=== PATIENT | male | born 1965 | race Caucasian/White ===

== ENCOUNTER 2025-02-16 12:23 | Outpatient (AMB) | payer MEDICAID, SELFPAY ==
--- OUTSIDE RECORDS SUMMARY | 2025-02-16 12:58 | XMS_ITS | Encounter Summary ---
Author Organization [employer] Address [address] [place] [address] Care Team Providers Care Dipper Clock And Watch Hands Name Role Phone Tessy Painting MD Primary Care Provider [phone] Encounter Details Date Type Department Care Team (Late st Contact Info) Description 02/13/2025 Telephone [facility] MEDICAL [address] [place] [address] Tessy Painting MD [address] [place] [address] Social History Tobacco Use Types Packs/Day Years Used Date Smoking Tobacco: Every Day Cigarettes Passive Smoke Exposure: Current Alcohol Use Standard Drinks/Week Comments Not Currently 0 (1 standard drink = 0.6 oz pur e alcohol) Alcohol Answer Date Recorded How often do you have a drink containing alcohol ? 0 01/23/2025 How many drinks containing a lcohol do you have on a typical day when you are drinking? 0 01/23/2025 How often do you have six or more drinks on one occasion? 0 01/23/2025 Housing Stability Answer Date Recorded What is your housing situation today? I have richmond vazquez 11/14/[address] you li ve. Do you have problems with any of the following? None of the above 11/14/2024 Food Insecurity Answer Date Recorded Within the past 12 months, y ou worried that your food would run out before you got money to buy more: Never True 11/14/2024 Within the past 12 months,th e food you bought just didn't last and you didn't have enough money to get more: Never True Transportation Answer Date Recorded In the past 12 months, has l ack of transportation kept you from medical appts, meetings, work or from getting things needed for daily living? No 11/14/2024 Intimate Partner Violence Answer Date R ecorded Within the last year, have y ou been afraid of your partner or ex-partner? 2 01/23/2025 Within the last year, have y ou been humiliated or emotionally abused in other ways by your partner or ex-partner? 2 Within the last year, have y ou been kicked, hit, slapped, or otherwise physically hurt by your partner or ex-partner? 2 01/23/2025 Within the last year, have y ou been raped or forced to have any kind of sexual activity by your partner or ex-partner? 2 01/23/2025 Utilities Answer Date Recorded In the past 12 months, has t he electric, gas, oil or water company threatened to shut off services in your home? No 11/14/2024 Depression Answer Date Recorded Patient Health Questionnaire-2 Score 0 11/14/2024 Internet Access Answer Date Recorded Internet Access Q1 Yes 11/14/2024 Internet Access Q2 Not on file 11/14/2024 Sex and Gender Information Value Date Recorded Sex Assigned at Male 06/03/2022 11:37 AM EST Legal Sex Male 5:42 PM EDT Gender Identity Male 06/03/2022 11:37 AM EST Sexual Orientation Straight 09/03/2022 11 :32 AM EDT Occupation Industry Job Start Date Job End Date Not on file Not on file Not on file Not on file documented as of this encounter Miscellaneous Notes * Telephone Encounter - Alexa Caldwell MA - 02/13/2025 10:56 AM EDT [facility] Last fill Date: 01/18/25 [facility] sold Date: 01/18/25 Last OV: 01/23/25 Next OV: 03/13/25 Last UTOX: No Utox CSA Date: 01/04/25 DNF Date: 02/15/25 * Telephone Encounter - MELVIN Santamaria - 02/13/2025 8:43 AM EDT Patient left a VM on [facility] requesting oxyCODONE-acetaminophen (Percocet) 10-325 MG tablet TE to BRODERICK Lomeli to prepare CS Rx for the provider documented in this encounter Plan of Treatment Upcoming Encounters Date Type Department Care Team (Late st Contact Info) Description 03/13/2025 2:40 PM EDT [facility] Visit [facility] MED[facility] [address] [place] [address] Tessy Painting MD [address] [place] [address] documented as of this encounter Visit Diagnoses Not on filedocumented in this encounter Care Teams Dipper Clock And Watch Hands Relationship Specialty Start Date End Date Tessy Painting MD [address] [place] [address] PCP - General Family Medicine 06/08/24 documented as of this encounter
--- OUTSIDE RECORDS SUMMARY | 2025-02-16 12:58 | XMS_ITS | Encounter Summary ---
Author Organization [employer] Address [address] [facility] 7t [place] [address] Care Team Providers Care Machine Silk Screen Printer Name Role Phone Corazon Shelton PA-C Primary Care Provider Unav Tessy Robertson MD Primary Care Provider [phone] Encounter Details Date Type Department Care Team (Latest Contact Info) Description 02/24/2022 Abstract [facility] Dental, Provider, DDS Social History Tobacco Use Types Packs/Day Years Used Date Smoking Tobacco: Never Assessed Sex and Gender Information Value Date Recorded Sex Assigned at Male 06/03/2022 11:37 AM EST Legal Sex Male 5:42 PM EDT Gender Identity Male 06/03/2022 11:37 AM EST Sexual Orientation Straight 09/03/2022 11 :32 AM EDT documented as of this encounter Plan of Treatment Upcoming Encounters Date Type Department Care Team (Late st Contact Info) Description 03/13/2025 2:40 PM EDT Office Visit [facility] MEDICAL [address] [place] [address] Tessy Painting MD [address] [place] [address] documented as of this encounter Visit Diagnoses Not on filedocumented in this encounter Care Teams Machine Silk Screen Printer Relationship Specialty Start Date End Date Corazon Shelton PA-C PCP - General Family Medicine 05/02/22 06/07/24 Tessy Painting MD [address] [place] [address] PCP - General Family Medicine 06/08/24 documented as of this encounter
--- OUTSIDE RECORDS SUMMARY | 2025-02-16 12:58 | XMS_ITS | Encounter Summary ---
Author Organization [employer] Address [address] [facility] 7t [place] [address] Care Team Providers Care Produce Wrapper Name Role Phone Corazon Shelton PA-C Primary Care Provider Tessy Dawson MD Primary Care Provider [phone] Encounter Details Date Type Department Care Team ([facility] Contact Info) Description 06/03/2022 Orders Only [address] [address] Aliza Alvarez LPN Social History Tobacco Use Types Packs/Day Years Used Date Smoking Tobacco: Never Assessed Sex and Gender Information Value Date Recorded Sex Assigned at Male 06/03/2022 11:37 AM EST Legal Sex Male 5:42 PM EDT Gender Identity Male 06/03/2022 11:37 AM EST Sexual Orientation Straight 09/03/2022 11 :32 AM EDT COVID-19 Exposure Response Date Recorded In the last 10 days, have yo u been in contact with someone who was confirmed or suspected to have Coronavirus/COVID-19? No / Unsure 06/03/2022 12:00 PM EST documented as of this encounter Plan of Treatment Upcoming Encounters Date Type Department Care Team ([facility] Contact Info) Description 03/13/2025 2:40 PM EDT Office Visit [address] [address] Tessy Painting MD [address] [place] [address] documented as of this encounter Visit Diagnoses Not on filedocumented in this encounter Care Teams Produce Wrapper Relationship Specialty Start Date End Date Corazon Shelton PA-C PCP - General Family Medicine 05/02/22 06/07/24 Tessy Painting MD [address] [place] [address] PCP - General Family Medicine 06/08/24 documented as of this encounter
--- OUTSIDE RECORDS SUMMARY | 2025-02-16 12:58 | XMS_ITS | Encounter Summary ---
Author Organization [employer] Address [address] [facility] [address]t [place] [address] Care Team Providers Care Sanitation Technician Name Role Phone Tessy Painting MD Primary Care Provider [phone] Reason for Visit * Reason Onset Date Comments Medication Question 08/09/2024 Encounter Details Date Type Department Care Team (Late st Contact Info) Description 08/09/2024 Telephone [facility] MEDICAL [address] [place] [address] Tessy Painting MD [address] [place] [address] Medication Question Social History Tobacco Use Types Packs/Day Years Used Date Smoking Tobacco: Every Day Cigarettes Sex and Gender Information Value Date Recorded Sex Assigned at Male 06/03/2022 11:37 AM EST Legal Sex Male 5:42 PM EDT Gender Identity Male 06/03/2022 11:37 AM EST Sexual Orientation Straight 09/03/2022 11 :32 AM EDT documented as of this encounter Miscellaneous Notes * Telephone Encounter - Aliza Alvarez LPN - 08/15/2024 4:14 PM EST Spoke with Joana at [facility]. Advised it is ok per Dr. Painting for them to fill Tramadol for . * Telephone Encounter - Desirae Hayden - 08/15/2024 3:59 PM EST To nursing * Telephone Encounter - Libby Azevedo - 08/15/2024 3:17 PM EST Pharmacist [place] [phone] called: major interaction with medications he just had a vivial injection done on August 09. So unfortunately I am being blocked from filling this prescription. You do need to give me a call before I can dispense this medicine. I want speak to somebody before we go and do anything else. If you get a free second, please give us a call this again this is truck at [place] [address] pharmacy. I will not be able to dispenses medicine until you callback my phone number here is [phone]. Thank you so much. * Telephone Encounter - Aliza Alvarez LPN - 08/09/2024 9:58 AM EST Spoke with pharmacy. Advised pt. Coming in on the for Vivitrol injection. They will deliver it in a day or two. * Telephone Encounter - Rachael Ellison - 08/09/2024 9:46 AM EST Cici from [facility] [phone] LMOM to set up Vivitrol delivery documented in this encounter Plan of Treatment Upcoming Encounters Date Type Department Care Team (Late st Contact Info) Description 03/13/2025 2:40 PM EDT Office Visit [facility] MEDICAL [address] [place] [address] Tessy Painting MD [address] [place] [address] documented as of this encounter Visit Diagnoses Not on filedocumented in this encounter Care Teams Sanitation Technician Relationship Specialty Start Date End Date Tessy Painting MD [address] [place] [address] PCP - General Family Medicine 06/08/24 documented as of this encounter
--- OUTSIDE RECORDS SUMMARY | 2025-02-16 12:58 | XMS_ITS | Encounter Summary ---
Author Organization [employer] Address [address] [facility] 7t [place] [address] Care Team Providers Care Sales Enablement Lead Name Role Phone Corazon Shelton PA-C Primary Care Provider Tessy Dawson MD Primary Care Provider Reason for Visit * Reason Onset Date Comments Vitral Delivery 11/19/2023 Encounter Details Date Type Department Care Team ([facility] Contact Info) Description 11/19/2023 Telephone [facility] MEDICAL [address] [place] [phone] Corazon Shelton PA-C Vitral Delivery Social History Tobacco Use Types Packs/Day Years Used Date Smoking Tobacco: Every Day Cigarettes Sex and Gender Information Value Date Recorded Sex Assigned at Male 06/03/2022 11:37 AM EST Legal Sex Male 5:42 PM EDT Gender Identity Male 06/03/2022 11:37 AM EST Sexual Orientation Straight 09/03/2022 11 :32 AM EDT documented as of this encounter Miscellaneous Notes * Telephone Encounter - Cheryl Salas RN - 11/19/2023 4:11 PM EDT Pts vivitrol will be delivered to [facility] 12/02/23 * Telephone Encounter - Varsha Magana - 11/19/2023 3:50 PM EDT [facility] LMOM asking to speak to nursing about viral delivery documented in this encounter Plan of Treatment Upcoming Encounters Date Type Department Care Team (Late Contact Info) Description 03/13/2025 2:40 PM EDT Office Visit [facility] MEDICAL [address] [place] [address] Tessy Painting MD [address] [place] [address] documented as of this encounter Visit Diagnoses Not on filedocumented in this encounter Care Teams Sales Enablement Lead Relationship Specialty Start Date End Date Corazon Shelton PA-C PCP - General Family Medicine 05/02/22 06/07/24 Tessy Painting MD [address] [place] [address] PCP - General Family Medicine 06/08/24 documented as of this encounter
--- OUTSIDE RECORDS SUMMARY | 2025-02-16 12:58 | XMS_ITS | Encounter Summary ---
Author Organization [employer] Address [address] [facility] 7t [place] [address] Care Team Providers Care Puller Over Name Role Phone Corazon Shelton PA-C Primary Care Provider Tessy Dawson MD Primary Care Provider Reason for Visit * Reason Onset Date Comments virtual delivery 04/06/2024 Encounter Details Date Type Department Care Team (Late st Contact Info) Description 04/06/[address] [id number] Corazon Shelton PA-C virtual delivery Social History Tobacco Use Types Packs/Day Years [...] Telephone Encounter - Aliza Alvarez LPN - 04/06/2024 2:08 PM EDT Spoke with [facility]. They will deliver Vivitrol next week. * Telephone Encounter - Varsha Magana - 04/06/2024 10:28 AM EDT [facility] virtual delivery with nursing documented in this encounter Plan of Treatment Upcoming Encounters Date Type Department Care Team (Late st Contact Info) Description 03/13/2025 2:40 PM EDT Office Visit [facility] MEDICAL [address] [place] [address] Tessy Painting MD [address] [place] [address] documented as of this encounter Visit Diagnoses Not on filedocumented in this encounter Care Teams Puller Over Relationship Specialty Start Date End Date Corazon Shelton PA-C PCP - General Family Medicine 05/02/22 06/07/24 Tessy Painting MD [address] [place] [address] PCP - General Family Medicine 06/08/24 documented as of this encounter
--- OUTSIDE RECORDS SUMMARY | 2025-02-16 12:58 | XMS_ITS | Encounter Summary ---
Author Organization [employer] Address [address] [facility] 7t [place] [address] Care Team Providers Care Finance Business Partner Name Role Phone Corazon Shelton PA-C Primary Care Provider Unav Tessy Robertson MD Primary Care Provider [phone] Encounter Details Date Type Department Care Team (Latest Contact Info) Description 06/26/2020 Abstract [facility] CON[facility] Dental, Provider, DDS Social [...] Description 03/13/2025 2:40 PM EDT Office Visit [facility] MEDICAL [address] [place] [address] Tessy Painting MD [address] [place] [address] documented as of this encounter Visit Diagnoses Not on filedocumented in this encounter Care Teams Finance Business Partner Relationship Specialty Start Date End Date Corazon Shelton PA-C PCP - General Family Medicine 05/02/22 06/07/24 Tessy Painting MD [address] [place] [address] PCP - General Family Medicine 06/08/24 documented as of this encounter
--- OUTSIDE RECORDS SUMMARY | 2025-02-16 12:58 | XMS_ITS | Encounter Summary ---
Author Organization [employer] Address [address] [facility] 7t [place] [address] Care Team Providers Care Clearance Center Manager Name Role Phone Corazon Shelton PA-C Primary Care Provider Tessy Dawson MD Primary Care Provider [phone] Encounter Details Date Type Department Care Team ([facility] Contact Info) Description 08/07/2022 Orders Only [facility] [address] [place] [address] Corazon Shelton PA-C Social History Tobacco Use Types Packs/Day Years [...] suspected to have Coronavirus/COVID-19? No / Unsure 08/07/2022 11:56 AM EST documented as of this encounter Plan of Treatment Upcoming Encounters Date Type Department Care Team ([facility] Contact Info) Description 03/13/2025 2:40 PM EDT Office Visit [facility] [address] [place] [address] Tessy Painting MD [address] [place] [address] documented as of this encounter Visit Diagnoses Not on filedocumented in this encounter Care Teams Clearance Center Manager Relationship Specialty Start Date End Date Corazon Shelton PA-C PCP - General Family Medicine 05/02/22 06/07/24 Tessy Painting MD [address] [place] [address] PCP - General Family Medicine 06/08/24 documented as of this encounter
--- OUTSIDE RECORDS SUMMARY | 2025-02-16 12:58 | XMS_ITS | Encounter Summary ---
Author Organization [employer] Address [address] [facility] 7t [place] [address] Care Team Providers Care Shoe Repairer Apprentice Name Role Phone Tessy Painting MD Primary Care Provider [phone] Reason for Visit * Reason Onset Date Comments Med Refill 02/13/2025 Encounter Details Date Type Department Care Team (Late st Contact Info) Description 02/13/2025 Refill [facility] MEDICAL [address] [place] [address] Tessy Painting MD [address] [place] [address] Other chronic postprocedural pain; Failed back surgical syndrome Social History Tobacco Use Types Packs/Day Years [...] encounter Miscellaneous Notes * Telephone Encounter - Desirae Hayden - 02/13/2025 10:18 AM EDT [facility] Last fill Date: 01.18.25 [facility] sold Date: 01.18.25 Last OV: 01.23.25 Next OV: 03.13.25 Last UTOX: 01.04.25 CSA Date: 01.04.25 DNF Date: 02.15.25 per [facility], chart shows a script sent on 01.24.25 making it due 02.21.25 * Telephone Encounter - Brittney Milton - 02/13/2025 9:05 AM EDT Patient called for refill of the following medication oxyCODONE-acetaminophen (Percocet) 10-325 MG tablet Please use the following pharmacy [facility] [address] - [place], [place] - [address] [place] [id number] OZZIE #: [id number] I confirmed with patient that this medication was sent in to pharmacy on 01/23 for a 28 day supply and he stated yes but I'm out today of this medication and need a refill I advised patient I will send this refill request message but it appears this would be a early refill since he is out and I told him I'm not sure if it will be approved and the earliest it can take to be sent to the pharmacy. Patient replied OK documented in this encounter Plan of Treatment Upcoming Encounters Date Type Department Care Team (Late st Contact Info) Description 03/13/2025 2:40 PM EDT Office Visit [facility] MEDICAL [address] [place] [address] Tessy Painting MD [address] [place] [address] documented as of this encounter Visit Diagnoses Diagnosis Other chronic postprocedural pain Failed back surgical syndrome documented in this encounter Care Teams Shoe Repairer Apprentice Relationship Specialty Start Date End Date Tessy Painting MD [address] [place] [address] PCP - General Family Medicine 06/08/24 documented as of this encounter
--- OUTSIDE RECORDS SUMMARY | 2025-02-16 12:58 | XMS_ITS | Clinical Summary ---
Author Organization [employer] Address [address] [facility] [address] [place] [address] Care Team Providers Care Laser/Electro Optics Technician Name Role Phone Tessy Painting MD Primary Care Provider [phone] Allergies Active Allergy Reactions Criticality Noted Date Comments Morphine Unknown 06/03/2022 Other reaction(s): Unknown Shrimp (Diagnostic) Unknown Medium 03/15/2017 Medications Sodium Fluoride (PreviDent 5000 Booster Plus) 1.1 % paste Apply 1 Dose to teeth Once daily. Spit do not rinse. In addition to usual tooth brushing. 112 g 023 Active ibuprofen 800 MG tabletIndications :Other chronic pain Take 1 tablet (800 mg) by mouth 3 times daily. 90 tablet 024 Active acamprosate (Campral) 333 MG EC tabletIndications :Alcohol use disorder Take 1 tablet (333 mg) by mouth 2 times daily. Do not crush, chew, or split. 60 tablet 1 025 Active Ventolin HFA 108 (90 Base) MCG/ACT inhalerIndication s:Pulmonary emphysema, unspecified emphysema type (CMS/HCC) INHALE TWO PUFFS INTO THE LUNGS EVERY 4 HOURS NEEDED FOR SHORTNESS OF BREATH OR WHEEZING 18 g 2 025 Active meloxicam (Mobic) 15 MG tabletIndications :Chronic pain syndrome Take 1 tablet (15 mg) by mouth Once per day. For anti inflammation 90 tablet 025 2025 Active traZODone (Desyrel) 100 MG tabletIndications :Primary insomnia Take 1 tablet (100 mg) by mouth at bedtime. 90 tablet 3 025 2025 Active DULoxetine (Cymbalta) [address] capsuleIndication s:Bipolar 1 disorder (CMS/HCC) Take 1 capsule (60 mg) by mouth Once per day. For PAIN modulation 90 capsule 025 2025 Active pregabalin (Lyrica) 150 MG capsuleIndication s:Chronic pain syndrome Take 1 capsule (150 mg) by mouth 3 times daily. 90 capsule 1 Active doxepin (SINEquan) 10 MG capsuleIndication s:Psychophysiolog ical insomnia Take 1 capsule (10 mg) by mouth at bedtime. To help stay asleep 30 capsule 1 025 2024 Active oxyCODONE-acetami nophen (Percocet) 10-325 MG tabletIndications :Other chronic postprocedural pain,Failed back surgical syndrome Take 1 tablet by mouth every 6 (six) hours if needed for severe pain for up to 28 days. 112 tablet 025 2024 Active lidocaine (Lidoderm) 5 % patchIndications: Chronic pain syndrome Apply 1 patch topically Once per day. Apply to painful area 12 hours per day, remove for 12 hours. 30 patch 11 025 2024 Discontinued(I neffective) pregabalin (Lyrica) 150 MG capsuleIndication s:Chronic pain syndrome Take 1 capsule (150 mg) by mouth 3 times daily. 90 capsule 1 025 2024 Discontinued(R eorder (will not trigger notification to Pharmacy)) DULoxetine (Cymbalta) [address] capsuleIndication s:Bipolar 1 disorder (CMS/HCC) Take 1 capsule (60 mg) by mouth Once per day. Do not crush or chew. 90 capsule 025 2024 Discontinued(R eorder (will not trigger notification to Pharmacy)) eszopiclone (Lunesta) 2 MG tabletIndications :Psychophysiologi dario insomnia Take 1 tablet (2 mg) by mouth at bedtime. Take immediately before bedtime 30 tablet 025 2024 Discontinued doxepin (SINEquan) 10 MG capsuleIndication s:Psychophysiolog ical insomnia Take 1 capsule (10 mg) by mouth at bedtime. 30 capsule 1 025 2024 Discontinued(R eorder (will not trigger notification to Pharmacy)) oxyCODONE-acetami nophen (Percocet) 10-325 MG tabletIndications :Other chronic postprocedural pain,Failed back surgical syndrome Take 1 tablet by mouth every 6 (six) hours if needed for severe pain for up to 28 days. 112 tablet 025 2024 Discontinued(R eorder (will not trigger notification to Pharmacy)) traZODone (Desyrel) 150 MG tablet Take 150 mg by mouth at bedtime. 018 2024 Discontinued(R eorder (will not trigger notification to Pharmacy)) oxyCODONE-acetami nophen (Percocet) 10-325 MG tabletIndications :Other chronic postprocedural pain,Failed back surgical syndrome Take 1 tablet by mouth every 6 (six) hours if needed for severe pain for up to 28 days. 112 tablet 025 2024 Discontinued(R eorder (will not trigger notification to Pharmacy)) Hospital, Clinic, or Other Facility Administered Medication Ordered Dose Route Frequency Start Date End Date Status cyanocobalamin (Vitamin B-12) injection 1,000 mcgIndications:Low vitamin B12 level 1000 mcg IM Every 30 days 08/16/2024 Acti ve Active Problems Problem Noted Date Diagnosed Date Chronic pain 08/07/2022 Cigarette nicotine dependence without complicati on 08/07/2022 PTSD (post-traumatic stress disorder) 08/07/2022 Pulmonary emphysema 08/07/2022 Smoker 08/07/2022 Spinal stenosis 08/07/2022 Resolved Problems Problem Noted Date Diagnosed Date Resolved Date Alcoholic 08/07/2022 01/04/2025 Bipolar 1 disorder 08/07/2022 Encounters Date Type Department Care Team Description 02/13/[address] [address] Tessy Painting MD Other chronic postprocedural pain; Failed back surgical syndrome 02/13/2025 Telephone [facility] [address] [place] [address] Tessy Painting MD 02/07/[address] [address] Tessy Painting MD MRI disc 01/23/2025 11:20 AM EDT Office Visit [address] [address] Tessy Painting MD Primary insomnia (Primary Dx); Bipolar 1 disorder (CMS/HCC); Chronic pain syndrome; Other chronic postprocedural pain; Failed back surgical syndrome; Psychophysiological insomnia; Grief at loss of child 01/16/[address] [address] Tessy Painting MD Other chronic postprocedural pain; Failed back surgical syndrome 01/11/[address] [address] Tessy Painting MD PT1 01/06/[address] [address] Tessy Painting MD Pulmonary emphysema, unspecified emphysema type (CMS/HCC) 01/04/2025 10:00 AM EDT Office Visit [address] [address] Tessy Painting MD Neural foraminal stenosis of lumbar spine (Primary Dx); Moderate alcohol use disorder, in sustained remission (CMS/HCC); extermination inspector use of drug; Psychophysiological insomnia; Other chronic postprocedural pain; Failed back surgical syndrome 01/04/[address] [address] Tessy Painting MD Care Coordination; Previous Providers Name 12/21/[address] [address] Tessy Alvarez MD Med Dose Change 12/21/[address] [address] Tessy Painting MD Other chronic postprocedural pain; Failed back surgical syndrome 12/13/[address] [address] Tessy Painting MD PT-1 11/30/[address] [address] Tessy Painting MD Patient has questions 11/28/[address] [address] Tessy Painting MD Med Refill 11/27/[address] [address] Tessy Painting MD New Med Request; Insomnia; Medication Problem 11/23/[address] [address] Tessy Painting MD Results 11/23/2024 Results Follow-Up [facility] MED[facility] [address] [place] [address] Tessy Painting MD MR Lumbar Spine w/ and w/o Contrast 11/23/[address] [address] Tessy Painting MD positive findings 11/19/2024 Orders Only [address] [address] Tessy Painting MD from Last 3 Months Immunizations Immunization Administration Dates Next Due Hep A, Adult 01/04/2019 Influenza injectable quadrivalent preservative f ree 04/01/2018 Influenza, IIV3, injectable 03/11/2020 Influenza, seasonal, injectable, preservative fr ee 09/08/2014 Radha SARS-CoV-2 Vaccination 10/25/2020 PPD Test 11/06/2013 Tdap 02/15/2020 Family History Medical History Relation Name Comments Alcohol abuse Father Alcohol abuse Father's Brother Breast cancer Maternal Grandfather Diabetes Maternal Grandmother Diabetes Mother Lung cancer Mother Alcohol abuse Mother's Brother Alcohol abuse Mother's Sister Coronary artery disease Paternal Grandfather Heart attack Paternal Grandfather Relation Name Status Comments Father Father's Brother Maternal Grandfather Maternal Grandmother Mother Mother's Brother Mother's Sister Paternal Grandfather Social History Tobacco Use Types Packs/Day Years Used Date Smoking Tobacco: Every Day Cigarettes Passive Smoke Exposure: Current Tobacco Cessation:Ready to Q uit: Not Asked; Counseling Given: Not Answered Alcohol Use Standard Drinks/Week Comments Not Currently [...] file Not on file Not on file Last Filed Vital Signs Vital Sign Reading Time Taken Comments Blood Pressure 118/72 01/23/2025 11:40 AM EDT Pulse 105 01/23/2025 11:40 AM EDT Temperature 36.6 C (97.8 F) 01/04/2025 10:04 AM EDT Respiratory Rate 16 01/04/2025 10:04 AM EDT Oxygen Saturation 94% 01/23/2025 11:40 AM EDT Inhaled Oxygen Concentration - - Weight 61.2 kg (135 lb) 01/23/2025 11:40 AM EDT Height 167.6 cm (5' 6 ) 01/23/2025 11:40 AM EDT Body Mass Index 21.79 01/23/2025 11:40 AM EDT Plan of Treatment Upcoming Encounters Date Type Department Care Team (Late st Contact Info) Description 03/13/2025 2:40 PM EDT Office Visit [facility] MED[facility] [address] [place] [address] Tessy Painting MD [address] [place] [address] Health Maintenance Due Date Last Done Comments CT Colonography 1965 Colonoscopy 1965 Colorectal Cancer Screening 1965 FIT DNA/Cologuard 1965 FIT 1965 FOBT 1965 Sigmoidoscopy 1965 Dental Oral Exam 02/16/2024 08/17/2023, 11/2021, 03/12/2021, Additional history exists Dental X-Ray: Bitewings 08/18/2024 08/17/19 24, 06/08/2023, 02/24/2022, Additional history exists Dental Prophylaxis 11/30/2024 05/31/2024, 0 08/17/2023, 02/24/2022, Additional history exists Influenza Vaccine (#1) 2025 0, 04/01/2018, 09/08/2014 COVID-19 Vaccine (2 - season) 2025 10/25/2020 Postponed from 02/20/2024 (Other Medical Reasons) Zoster Vaccines (1 of 2) 03/21/2025 Pos tponed from 2015 (Other Patient Reasons) Pneumococcal Vaccine: 50+ Years (1 of 2 - PCV) 05/17/2025 Postponed from 1984 (Other Patient Reasons) Disability Screening 08/15/2025 08/15/2024 Alcohol/Substance Use Screening 11/14/2025 11/14/2024 Depression Screening 11/14/2025 11/14/2024, 11/15/19 25 Hepatitis B Vaccines (1 of 3 - 19+ 3-dose series) 11/14/2025 Postponed from 1984 (Patient Refused) SDOH Screening 11/14/2025 11/14/2024 Tobacco Screening 01/23/2026 01/23/2025 Dental X-Ray: Full Mouth 08/18/2026 08/17/2023, 1107/2017 Lipid Panel 07/21/2029 07/21/2024, 04/16/2016 DTaP/Tdap/Td Vaccines (2 - Td or Tdap) 02/14/2030 02/15/2020 RSV Patients and Patients Aged 60 years or older (1 - 1-dose 75+ series) 2040 HIV Screening Completed 04/16/2016 Hepatitis C Screening Completed 04/16/2016 Hepatitis A Vaccines Aged Out 01/04/2019 No long er eligible based on patient's age to complete this topic HIB Vaccines Aged Out No longer eligi ble based on patient's age to complete this topic HPV Vaccines Aged Out No longer eligi ble based on patient's age to complete this topic IPV Vaccines Aged Out No longer eligi ble based on patient's age to complete this topic Meningococcal B Vaccine Aged Out No l onger eligible based on patient's age to complete this topic Meningococcal Vaccine Aged Out No drew mauri eligible based on patient's age to complete this topic RSV under 20 months Aged Out No longe r eligible based on patient's age to complete this topic Rotavirus Vaccines Aged Out No longer eligible based on patient's age to complete this topic Procedures Procedure Name Priority Date/Time Associated Diagnosis Comments MONITOR SCREEN 14-DRUG CLASS PROFILE Routine 01/04/2025 12:00 AM EDT half-way use of drug MR LUMBAR SPINE W AND WO CONTRAST Routine 11/19/2024 6:49 PM EDT MRI LUMBAR SPINE W WO CONTRAST Routine 11/19/2024 Failed back surgical syndrome LIPID PANEL, STANDARD Routine 07/21/2024 10:11 AM EST Bipolar 1 disorder (CMS/HCC) Full PROPHYLAXIS - ADULT Routine 05/31/2024 2:00 PM EST INTRAORAL - COMPLETE SERIES OF RADIOGRAPHIC IMAGES Routine 08/17/2023 2:00 PM EST PERIODIC ORAL EVALUATION - ESTABLISHED PATIENT Routine 08/17/2023 2:00 PM EST HIV 1/2 ANTIGEN AND ANTIBODY (EXTERNAL RESULTS ONLY) Routine 04/16/2016 8:59 AM EDT HEPATITIS C ANTIBODY (EXTERNAL RESULTS ONLY) Routine 04/16/2016 8:58 AM EDT from Last 3 Months or Most Recently Relevant to Health Maintenance Results * (ABNORMAL) Monitor Screen 14-Drug Class Profile ([facility]??) (01/04/2025 12:00 AM EDT) Amphetamines Screen, Urine Negative Cutoff=1 000 ng/mL [facility] Barbiturates Screen, Urine Negative Cutoff=2 00 ng/mL [facility] Benzodiazepines Screen, Urine Negative Cutoff=2 00 ng/mL [facility] Cannabinoid Screen, Urine Positive(A) Cutoff=2 0 ng/mL [facility] Cocaine (Metab.) Screen, Urine Negative Cutoff=3 00 ng/mL [facility] Opiate Screen, Urine Negative Cutoff=3 00 ng/mL [facility] Comment:Opiate test includes Codeine, Morphine, Hydromorphone, Hydrocodone. Oxycodone/Oxymorpho ne, Urine Positive(A) Cutoff=1 00 ng/mL [facility] Comment:Test includes Oxycod one and Oxymorphone Phencyclidine Screen, Urine Negative Cutoff=2 5 ng/mL [facility] Methadone Screen, Urine Negative Cutoff=3 00 ng/mL [facility] Propoxyphene Screen, Urine Negative Cutoff=3 00 ng/mL [facility] Meperidine Screen, Urine Negative Cutoff=2 00 ng/mL [facility] Comment: This test was developed and its performance characteristics determined by [facility]. It has not been cleared or approved by the Food and Drug Administration. Fentanyl, Urine Negative Cutoff=2 000 pg/mL [facility] Comment: Test includes Fentanyl and Norfentanyl This test was developed and its performance characteristics determined by [facility]. It has not been cleared or approved by the Food and Drug Administration. Tramadol Screen, Urine Negative Cutoff=2 00 ng/mL [facility] Buprenorphine Negative Cutoff=1 0 ng/mL [facility] Creatinine, Urine 48.2 20.0 - 300.0 mg/dL [facility] pH, Urine 5.9 4.5 - 8.9 [facility] Please Note: [facility] Comment: This assay provides a preliminary unconfirmed analytical test result that may be suitable for clinical management of patients in certain situations. Drug-test results should be interpreted in the context of clinical information. Patient metabolic variables, specific drug chemistry, and specimen characteristics can affect test outcome. Technical consultation is available if a test result is inconsistent with an expected outcome. Email: [email or web address] Urine (Urine, Random) 01/04/2025 01/05/2025 Comment:Urine, Random Releas e Narrative Resulting Agency Comment Performed at: - [facility] [address] [place], [place] [id number] Convex Grinder Operator: Gera Waters PhD, Phone: [phone] Performed at: - [facility] [id number] Convex Grinder Operator: Dilcia Cervantes MD, Phone: [phone] Tessy Painting MD LAB URINE ORDERABLES Final Res ult [facility] * MR Lumbar Spine w/ and w/o Contrast (11/19/2024 6:49 PM EDT) Anatomical Region Laterality Modality Spine, L-spine Magnetic Resonan ce 11/19/2024 6:49 PM EDT Narrative 11/22/2024 5:02 PM EDT MRI Lumbar Spine W+W/O Contrast INDICATION: Reason: M48.07 M96.1 SPINAL STENOSIS OF LUMBOSACRAL REGION FAILED BACK SURGICAL SYNDROME; Clinical Question(s): Other: Other: TECHNIQUE: MRI of the lumbar spine was performed with and without intravenous contrast utilizing sagittal T1, sagittal T2, sagittal STIR, axial T1, and axial T2-weighted sequences, and post-contrast sagittal T1 and axial T1-weighted sequences. 12 mL of Prohance was administered intravenously. COMPARISON: Radiograph of 04/11/2018. FINDINGS: LOCALIZER: No additional findings on limited localizer images. NUMBERING: The study assumes 5 [id number] lumbar type vertebral bodies. ALIGNMENT, VERTEBRAE, MARROW, AND DISCS: There is posterior spinal fusion with instrumentation from L2 to through S1. There are decompressive laminectomies at L2-L3 and L5-S1. There is mild anterolisthesis of L5 on S1 and minimal retrolisthesis of L4 on L5. The lumbar spine alignment is otherwise preserved. There is minimal anterolisthesis of L1 on L2. Vertebral body heights are preserved. There is fusion of the vertebrae from L2 through S1. There is significant narrowing of the intervertebral disc space at L1-L2 with associated Modic type II/III endplate marrow changes at L1-L2. No suspicious bone marrow signal is present. There is significant disc desiccation at L1-L2 with a mild diffuse disc bulge. There is fusion of the intervertebral disc spaces at L2-L3 and L3-L4 and partial fusion of L5-S1. There is a persistent disc at L4-L5 with a mild disc bulge. CONUS: The conus is normal in signal and contour, with normal level of termination at L1-L2. There is no abnormal enhancement. PARASPINAL TISSUES: There is fatty infiltration of the paraspinal soft tissues at L5-S1 extending into the sacrum. The paraspinal soft tissues are otherwise unremarkable. The visualized retroperitoneum is normal. DETAILED FINDINGS BY LEVEL: T10-T11 and T11-T12: Minimal central disc protrusions without canal or foraminal stenosis. T12-L1: There is no significant spinal canal or foraminal stenosis. The disc is relatively preserved. L1-L2: There is marked disc desiccation with a mild diffuse disc bulge and posterior endplate spurs which in conjunction with prominent posterior epidural fat, ligamentum flavum thickening, and facet joint arthropathy results in moderate canal stenosis with crowding of the traversing nerve roots. There is severe bilateral foraminal stenosis, worse on the left. L2-L3: There is fusion of the vertebrae. There is no canal stenosis. The foramina are patent. L3-L4: No significant canal stenosis or neural foraminal narrowing. L4-L5: There is a mild disc bulge with a superimposed left paracentral disc extrusion extending into the left lateral recess and contacting the left L5 traversing nerve root. There is no canal stenosis. There is posterior endplate spurring and mild facet joint arthropathy with mild to moderate bilateral foraminal stenosis. L5-S1: There is uncovering of the disc without significant disc bulging. There are posterior endplate spurs. There is no canal or foraminal stenosis. IMPRESSION: Postsurgical changes in the lumbar spine from L2 through S1. L4-L5 left paracentral disc extrusion extending inferiorly into the left lateral recess and contacting the left L5 traversing nerve roots without impingement. Marked degenerative disease at L1-L2 which is the level immediately above the fusion likely related to altered biomechanics with moderate canal stenosis and crowding of the traversing roots as well as severe bilateral foraminal stenosis, worse on the left. Correlation with patient's symptoms is advised. An actionable message (Yellow) has been communicated via the [employer] system on 11/22/2024 4:59 PM, Message ID [id number]. WSN: [id number] Ordering Physician: Tessy Painting Dictated By: Stacey Roberts MD Dictated Date/Time: 11/22/24 4:59 pm Reviewed By: Stacey Roberts MD Signed By: Stacey Roberts MD Signed Date/Time: 11/22/24 4:59 pm Transcribed By: MAXWELL Transcribed Date/Time: 11/22/24 4:39 pm Procedure Note Donotuseinterpreter, Image - 11/22/2024 MRI Lumbar Spine W+W/O Contrast INDICATION: Reason: M48.07 M96.1 SPINAL STENOSIS OF LUMBOSACRAL REGIONFAILED BACK SURGICAL SYNDROME; Clinical Question(s): Other: Other: TECHNIQUE: MRI of the lumbar spine was performed with and withoutintravenous contrast utilizing sagittal T1, sagittal T2, sagittal STIR, axial T1, andaxial T2-weighted sequences, and post-contrast sagittal T1 and axialT1-weighted sequences. 12 mL of Prohance was administered intravenously. COMPARISON: Radiograph of 04/11/2018. FINDINGS: LOCALIZER: No additional findings on limited localizer images. NUMBERING: The study assumes 5 [id number] lumbar type vertebralbodies. ALIGNMENT, VERTEBRAE, MARROW, AND DISCS: There is posterior spinal fusionwith instrumentation from L2 to through S1. There are decompressivelaminectomies at L2-L3 and L5-S1. There is mild anterolisthesis of L5 on S1 and minimal retrolisthesis of L4 on L5. The lumbar spine alignment is otherwisepreserved. There is minimal anterolisthesis of L1 on L2. Vertebral body heights are preserved. There is fusion of the vertebrae from L2 through S1. There is significant narrowing of the intervertebral disc space at L1-L2 withassociated Modic type II/III endplate marrow changes at L1-L2. No suspicious bonemarrow signal is present. There is significant disc desiccation at L1-L2 with amild diffuse disc bulge. There is fusion of the intervertebral disc spaces atL2-L3 and L3-L4 and partial fusion of L5-S1. There is a persistent disc at L4-L5with a mild disc bulge. CONUS: The conus is normal in signal and contour, with normal level of termination at L1-L2. There is no abnormal enhancement. PARASPINAL TISSUES: There is fatty infiltration of the paraspinal softtissues at L5-S1 extending into the sacrum. The paraspinal soft tissues areotherwise unremarkable. The visualized retroperitoneum is normal. DETAILED FINDINGS BY LEVEL: T10-T11 and T11-T12: Minimal central disc protrusions without canal orforaminal stenosis. T12-L1: There is no significant spinal canal or foraminal stenosis. Thedisc is relatively preserved. L1-L2: There is marked disc desiccation with a mild diffuse disc bulgeand posterior endplate spurs which in conjunction with prominent posteriorepidural fat, ligamentum flavum thickening, and facet joint arthropathy resultsin moderate canal stenosis with crowding of the traversing nerve roots. Thereis severe bilateral foraminal stenosis, worse on the left. L2-L3: There is fusion of the vertebrae. There is no canal stenosis. The foramina are patent. L3-L4: No significant canal stenosis or neural foraminal narrowing. L4-L5: There is a mild disc bulge with a superimposed left paracentraldisc extrusion extending into the left lateral recess and contacting the leftL5 traversing nerve root. There is no canal stenosis. There is posteriorendplate spurring and mild facet joint arthropathy with mild to moderatebilateral foraminal stenosis. L5-S1: There is uncovering of the disc without significant disc bulging.There are posterior endplate spurs. There is no canal or foraminal stenosis. IMPRESSION: Postsurgical changes in the lumbar spine from L2 through S1. L4-L5 left paracentral disc extrusion extending inferiorly into the left lateralrecess and contacting the left L5 traversing nerve roots without impingement. Marked degenerative disease at L1-L2 which is the level immediately abovethe fusion likely related to altered biomechanics with moderate canal stenosisand crowding of the traversing roots as well as severe bilateral foraminalstenosis, worse on the left. Correlation with patient's symptoms is advised. An actionable message (Yellow) has been communicated via the [employer] system on 11/22/2024 4:59 PM, Message ID [id number]. WSN: [id number] Ordering Physician: Tessy Painting Dictated By: Stacey Roberts MD Dictated Date/Time: 11/22/24 4:59 pm Reviewed By: Stacey Roberts MD Signed By: Stacey Roberts MD Signed Date/Time: 11/22/24 4:59 pm Transcribed By: MAWXELL Transcribed Date/Time: 11/22/24 4:39 pm us Tessy Painting MD IMG MRI PROCEDURES Final Resul t * MRI LUMBAR SPINE W WO CONTRAST (11/19/2024) Anatomical Region Laterality Modality Magnetic Resonan ce Result [facility] Tessy Painting MD IMG MRI PROCEDURES Final Resul t * Lipid Panel, Standard 48247 (07/21/2024 10:11 AM EST) Pathologist [facility] Cholesterol, Total 151 100 - 199 mg/dL [facility] 1 Triglycerides 93 0 - 149 mg/dL [facility] 1 HDL Cholesterol 57 >39 mg/dL [facility] 1 VLDL Cholesterol Dario 17 5 - 40 mg/dL [facility] 1 LDL Chol Calc (NIH) 77 0 - 99 mg/dL [facility] 1 Blood Venous blood specimen / Unknown 07/21/2024 10:11 AM EST 07/21/2024 Narrative [facility] 1 - 07/22/2024 6:05 AM EST Performed at: 01 - [facility] [address] [id number] Convex Grinder Operator: Dilcia Cervantes MD, Phone: [phone] Result [facility] Tessy Painting MD LAB BLOOD ORDERABLES Final Res ult [facility] * HIV 1/2 ANTIGEN AND ANTIBODY (EXTERNAL RESULTS ONLY) (04/16/2016 8:59 AM EDT) Pathologist [facility] HIV Ag/Ab Nonreactive 04/16/2016 8:59 AM EDT Historical Provider LAB POINT OF CARE TEST DOCKED DEVICE UNSOLICITED RESULTS Final Result * Hepatitis C Antibody (04/16/2016 8:58 AM EDT) Pathologist [facility] Hepatitis C Antibody Nonreactive Blood 04/16/2016 8:58 AM EDT Historical Provider POINT OF CARE TEST ENTER/ EDIT ORDERABLES Final Result from Last 3 Months or Most Recently Relevant to Health Maintenance [place] [address] [place] [address] [facility] MEDICAID STAND ADULT DENTAL - [facility] FULL (MEDICAID) Care Teams Laser/Electro Optics Technician Relationship Specialty Start Date End Date Bossie, Tessy, MD [address] [place] [id number] PCP - General Family Medicine 06/08/24
--- OUTSIDE RECORDS SUMMARY | 2025-02-16 12:58 | XMS_ITS | Encounter Summary ---
Author Organization [employer] Address [address] [facility] 7[address] [place] [address] Care Team Providers Care Code Clerk Name Role Phone Tessy Painting MD Primary Care Provider [phone] Reason for Visit * Reason Onset Date Comments Medication Visit 09/01/2024 Medication Problem 09/01/2024 Encounter Details Date Type Department Care Team (Late st Contact Info) Description 09/01/2024 Telephone [facility] [address] [place] [address] Tessy Painting MD [address] [place] [address] Medication Visit; Medication Problem Social History Tobacco Use Types Packs/Day Years [...] Telephone Encounter - Aliza Alvarez LPN - 09/12/2024 10:[address] Painting's note from today's visit. * Telephone Encounter - Aliza Alvarez LPN - 09/12/2024 10:25 AM EDT Pt. Here today for OV with Dr. Painting. * Telephone Encounter - Aliza Alvarez LPN - 09/06/2024 8:52 AM EDT I spoke with [facility] and asked that they put Vivitrol on hold for now as he may possibly be going off of it. Next appt.-09/12/24 * Telephone Encounter - Cinthia Ruff - 09/04/2024 2:17 PM EDT Cici ([facility]) called reiterating the same message as below stating someone called us to schedule a Vivitrol delivery for tomorrow (09/03/24), we tried to fill it today (09/04/24) but it got rejected, we want to know if the patient is on Tramadol (50 mg) and if the patient's provider is aware that the Tramadol and Vivitrol will interact, please call back [phone]. * Telephone Encounter - Rachael Ellison - 09/04/2024 1:58 PM EDT Cici LMOM Tried to fill today, but were rejected due to interactions with traMADol (Ultram) 50 MG tablet [[id number]] [phone] to confirm it's OK to send Vivitrol while pt on Tramadol * Telephone Encounter - Aliza Alvarez LPN - 09/04/2024 10:19 AM EDT [facility] or Wednesday. * Telephone Encounter - Rachael Ellison - 09/01/2024 4:09 PM EDT Cici from [facility] Would like cb to schedule Vivitrol delivery [phone] documented in this encounter Plan of Treatment Upcoming Encounters Date Type Department Care Team (Late st Contact Info) Description 03/13/2025 2:40 PM EDT Office Visit [facility] [address] [place] [address] Tessy Painting MD [address] [place] [address] documented as of this encounter Visit Diagnoses Not on filedocumented in this encounter Care Teams Code Clerk Relationship Specialty Start Date End Date Tessy Painting MD [address] [place] [address] PCP - General Family Medicine 06/08/24 documented as of this encounter
[2025-02-16 13:13] VITALS: BMI 21.0
--- NOTE | 2025-02-16 13:13 | HO.SPINEOV ---
Vital Signs 02/16/25 13:13 Height 5 ft 6 in Weight 130 lb BMI 21.0 Intake Visit Reasons: Back pain Intake Note: Ms. Gutierrez is here today c/o low back pain that radiates down to the legs. Floor Winder Required: No Allergies morphine Allergy (Severe, Verified 02/16/25 13:14) Anaphylaxis Physical Exam Vital Signs: BMI result Body Mass Index 21.0 Assessment & Plan Assessment & Plan (1) Back pain: Code(s): M54.9 - Dorsalgia, unspecified Category: Medical (2) Cervical myelopathy: Code(s): G95.9 - Disease of spinal cord, unspecified Category: Medical Plan Dear Dr Painting, Thank you for referring Mr Gutierrez to our office today. This is a 59-year-old gentleman with an extensive spinal surgical history including some kind of neck surgery done many years ago, he can not recall exactly when, sounds like maybe spinal cord compression at some point. Also has had 4 back surgeries, could not remember the name of his surgeons but believes the last surgery was probably at [facility]. Presents with back pain amongst other complaints. He also has a little bit of pain going down his left buttock in his left posterior thigh. He feels as though that the surgeries he had done were helpful to him but in general the back pain has been persistent enough where it leaves him in a chair about 8 hours a day. He takes oxycodone daily. He tried cortisone injections and what sounds like a spinal cord stimulator trial without success. He has not done physical therapy now for many many years. He has had no manager respiratory care or other acupuncture etc. recently. He tried [id number]-[id number] medications like Tylenol and Motrin but did not find them useful. He comes in today with an MRI done at [facility] showing severe degenerative disc disease at L1-2 with stenosis. PMH: He could not recall many of his medical problems, but from what he could tell me he said he was very healthy with no major issues with his heart or lungs etc.. He was an alcoholic but quit 3 years ago. He has depression, has had surgery on his colon for some kind of infection. He had an ostomy with reversal at that time. He had hernia surgeries. He also had as above the neck and back surgeries. He denies any history of cancer, cardiopulmonary disease, blood clots, bleeding disorders or infections. Social hx: He smokes about half a pack a day, quit drinking 3 years ago but was a heavy drinker for a long time. He smokes marijuana on the weekends. Medications: Albuterol, duloxetine, Lunesta, ibuprofen, lidocaine, oxycodone, Lyrica Allergies: Morphine Physical exam: Awake alert oriented no acute distress, slow to get up. He has a well healed incision has midline lumbar region. Mild weakness of his hands but other than that strength is normal. Slightly unsteady with tandem gait walking. Reflexes reveal hyperreflexia on the left side with borderline Higgins's sign and 1 beat of clonus in his left ankle. Imaging review: There [facility] him just review of his lumbar spine which shows extensive fusion with transitional anatomy. If we are calling the lowest screw level S1 then the what we are looking at here is spinal instrumentation from L2-S1. There is severe disc collapse at L1-2 and moderate central canal stenosis. Impression: 59-year-old gentleman with an extensive spinal history, cervical and lumbar, presents with chronic back pain. He had his last spinal fusion at some point about 7 or 8 years ago and it sounds like it was an extension of a previous fusion. He now has screws from L2-S1. He has severe disc collapse at L1-2 with moderate central canal stenosis. He has back pain and is presenting like failed back syndrome. We discussed the fact that even though he has a collapsed disc at L1-2, fixing that by extending the fusion further up to the junctional segment would be unlikely to give him optimum pain relief. It is well-known in the spine surgery world that each successive surgery yields less favorable results. Before I tell him that he is not a surgical candidate I would like to at least get a better understanding of the anatomy with x-rays and a CT scan as well as the operative notes from his surgery at [facility]. This at least will tell us if the screws are intact or if there is any evidence of pseudoarthrosis which can be an alternate explanation for back pain. We can also find out from his operative notes if the surgeon at [facility] if there were any complications in the surgery such as bad bone quality that may have led them to have to do such an extensive surgery. As a side issue altogether, he also has some complaints of numbness of his arms and has hyperreflexia and some gait instability so I am obligated to check a cervical MRI and x-rays to rule out a problem in his neck as well. I will see him back once we have all the studies and the operative note. Thank you for allowing us to care for your patient. The total time spent with this visit with this patient was 65 minutes reviewing history, physical exam, lumbar imaging review, and implementation of treatment plan or further diagnostic testing Arron Suarez MD,PhD [facility] Orders: Orders XR lumbar spine 4V min Today M54.9 - Dorsalgia, unspecified XR cervical spine 4V Today G95.9 - Disease of spinal cord, unspecified MR cervical spine wo con Today G95.9 - Disease of spinal cord, unspecified CT lumbar spine wo IV con Today M54.9 - Dorsalgia, unspecified Coding Level of Care Code New Pt Level 5 (60778) Diagnoses Back pain M54.9 Cervical myelopathy G95.9
== END 2025-02-16 14:02 | disposition home or self-care (01) ==
LOC: HO.HNS 12:23
PROVIDERS: PCP Family Medicine; Referring Provider Family Medicine; Visit Provider Physician Assistant
DX: M54.9 Dorsalgia, unspecified (principal); G95.9 Disease of spinal cord, unspecified
CPT/HCPCS: 99205

== ENCOUNTER 2025-02-16 12:23 | Outpatient (REF) | payer MEDICAID, SELFPAY ==
--- NOTE | ~2025-02-16 | XR_ITS ---
EXAMINATION: XR CERVICAL SPINE CLINICAL INFORMATION: G95.9 - Disease of spinal cord, unspecified COMPARISON: None available. TECHNIQUE: AP, and lateral: Flexion, neutral, and extension view x-rays of the cervical spine. FINDINGS: Anterior plate and screws fuse C3-4 post discectomy. There also appears to be bony fusion of C4-5, C5-6, and C6-7 with no hardware in place. There is an abandoned screw tip in left C6. Severe degenerative changes noted at C7-T1. There is vacuum phenomena, endplates gross, and osteophytes. There is severe facet degeneration as well as osteophytes and sclerosis. During flexion and extension, there is limited range of motion with persistent mild reversal of cervical lordosis. There is no sign of instability. There is no prevertebral soft tissue edema. XR/XR cervical spine 4V IMPRESSION: Extensive cervical fusion between C3-C7. Severe degenerative disc disease and facet osteoarthritis at C7-T1. Electronically signed by: Manny Sarmiento MD 02/16/2025 04:24 PM EDT
--- NOTE | ~2025-02-16 | XR_ITS ---
Exam: Three-view lumbar spine. TECHNIQUE: AP, and lateral: Flexion, neutral, and extension view x-rays of the lumbar spine. Prior: None INDICATION: Dorsalgia FINDINGS: Posterior pedicle screws and rods are present between L2-S1. Rods and pedicle screws at L2, L3, and L4. Pedicle screws in L5 and S1 do not appear attached to the rods. There is a crossbar connecting the rods at the level of L4-5. With flexion and extension, there is limited range of motion. There is no sign of instability. Hardware is intact without evidence of loosening. Severe degenerative changes present at L1-2 with severe disc space narrowing, endplate sclerosis, and osteophytes. XR/XR lumbar spine 4V min IMPRESSION: Postsurgical changes, as described above. No sign of instability. Electronically signed by: Manny Sarmiento MD 02/16/2025 04:21 PM EDT
== END 2025-02-16 12:24 | disposition home or self-care (01) ==
LOC: HO.HOSX 12:23
PROVIDERS: PCP Family Medicine; Referring Provider Family Medicine; Visit Provider Physician Assistant
DX: G89.29 Other chronic pain (principal); G95.9 Disease of spinal cord, unspecified; M51.362 Other intervertebral disc degeneration, lumbar region with discogenic back pain and lower extremity pain; M48.061 Spinal stenosis, lumbar region without neurogenic claudication; R29.2 Abnormal reflex; R20.0 Anesthesia of skin; R26.89 Other abnormalities of gait and mobility; Z98.1 Arthrodesis status; Z79.891 Long term (current) use of opiate analgesic
CPT/HCPCS: 72050; 72110; 99212

== ENCOUNTER → 2025-02-16 13:43 | Outpatient (BNV) | payer MEDICAID, SELFPAY | PROVIDERS: PCP Family Medicine; Referring Provider Family Medicine; Visit Provider Radiology Diagnostic Radiology | DX: M51.369 Other intervertebral disc degeneration, lumbar region without mention of lumbar back pain or lower extremity pain (principal); M43.22 Fusion of spine, cervical region; M46.92 Unspecified inflammatory spondylopathy, cervical region; M54.50 Low back pain, unspecified | CPT/HCPCS: 72050; 72110 ==

== ENCOUNTER → 2025-03-05 18:43 | Outpatient (BNV) | payer MEDICAID, SELFPAY | PROVIDERS: PCP Family Medicine; Visit Provider Radiology Diagnostic Radiology | DX: M99.61 Osseous and subluxation stenosis of intervertebral foramina of cervical region (principal) | CPT/HCPCS: 72141 ==

== ENCOUNTER 2025-03-05 18:45 | Outpatient (REF) | payer MEDICAID, SELFPAY ==
--- NOTE | ~2025-03-05 | MR_ITS ---
EXAMINATION: MR CERVICAL SPINE WITHOUT CONTRAST CLINICAL INFORMATION: Disease of spinal cord, unspecified. COMPARISON: Correlated to x-ray dated February 16, 2025. TECHNIQUE: MRI of the cervical spine was obtained using routine sequences without contrast. FINDINGS: Craniocervical junction is intact with normal position of the cerebellar tonsils. Paramagnetic field distortion secondary to metallic hardware at C3-4 and C6-7. No bone marrow STIR signal abnormality. Reverse curvature apex at C3-4. Ankylosis C5 7. Grade 1 anterolisthesis C3-4 and C2-3. No signal abnormality within the cervical spinal cord. Buckling deformity secondary to hypertrophy of the ligamentum flavum at C6-7. C2-3: Broad-based disc osteophyte consummation. Facet joint hypertrophy, left greater than right. No central spinal canal stenosis or cord compression. Left neuroforamina and stenosis. C3-4: Postsurgical changes and kyphotic deformity resulting in ventral deformity of the spinal cord and reduced AP diameter of the thecal sac. No cord signal abnormality. Bilateral, left greater than right neuroforamina stenosis. C4-5: Postsurgical changes. CSF effacement of the ventral aspect of the thecal sac. No cord compression. No cord signal abnormality. No gross neuroforamina stenosis. C5-6: Postsurgical changes. No central spinal canal or neuroforamina stenosis. C6-7: Postsurgical changes. Decreased AP diameter of the thecal sac. No cord compression. Bilateral neuroforamina narrowing on the multifactorial basis. C7-T1: Reduced AP diameter of the thecal sac. Postsurgical changes. No cord compression. No gross neuroforamina stenosis. No prevertebral compartment hematoma, mass or fluid collection. Flow-void signal within the main vessels is normal. Codominant vertebral arteries. MR/MR cervical spine wo con IMPRESSION: Postsurgical changes C3 C7 with a [place] deformity apex at C3-4 resulting in central spinal canal and bilateral neuroforamina stenosis without cord edema and or myelopathy. Grade 1 anterolisthesis C3-4 and likely C3. Instability cannot be excluded. Electronically signed by: Herman Jacques MD 03/06/2025 07:30 AM EDT
--- OUTSIDE RECORDS SUMMARY | 2025-03-05 21:49 | XMS_ITS | Encounter Summary ---
Author Organization [employer] Address [address] [facility] 7t [place] [address] Care Team Providers Care Writer Producer Name Role Phone Corazon Shelton PA-C Primary Care Provider Tessy Dawson MD Primary Care Provider [phone] Reason for Visit * Reason Onset Date Comments virtual delivery 04/06/2024 Encounter Details Date Type Department Care Team (Late st Contact Info) Description 04/06/[address] [id number] Corazon Shelton PA-C virtual delivery Social History [...] - 04/06/2024 10:28 AM EDT [facility] to schedule a virtual delivery with nursing documented in this encounter Plan of Treatment Upcoming Encounters Date Type Department Care Team (Late st Contact Info) Description 03/07/2025 11:50 AM EDT Office Visit [facility] [address] [place] [address] Zac Tian Jr., DMD [address] [place] [address] 03/08/2025 11:00 AM EDT Office Visit [facility] [address] [place] [address] Farnaz Merida LLD [address] [place] [address] 03/09/2025 12:20 PM EDT Office Visit [facility] [address] [place] [address] Zac Tian Jr., DMD [address] [place] [address] 03/13/2025 2:40 PM EDT Office Visit [facility][1] MEDICAL [address] [place] [address] Tessy Paintign MD [address] [place] [address] 05/04/2025 12:00 PM EST Office Visit [facility][1] DENTAL [address] [place] [address] Maria G Thapa documented as of this encounter Visit Diagnoses Not on filedocumented in this encounter Care Teams Writer Producer Relationship Specialty Start Date End Date Corazon Shelton PA-C PCP - General Family Medicine 05/02/22 06/07/24 Tessy Painting MD [address] [place] [address] PCP - General Family Medicine 06/08/24 documented as of this encounter
--- OUTSIDE RECORDS SUMMARY | 2025-03-05 21:49 | XMS_ITS | Encounter Summary ---
Author Organization [employer] Address [address] [facility] 7t [place] [address] Care Team Providers Care Anesthesiology Faculty Name Role Phone Corazon Shelton PA-C Primary Care Provider Tessy Dawson MD Primary Care Provider [phone] Encounter Details Date Type Department Care Team ([facility] Contact Info) Description 08/07/2022 Orders Only [facility] [address] [place] [address] Corazon Shelton PA-C Social History Tobacco Use [...] Upcoming Encounters Date Type Department Care Team ([facility] Contact Info) Description 03/07/2025 11:50 AM EDT Office Visit [facility] DENT[facility] [address] [place] [address] Zac Tian Jr., DMD [address] [place] [address] 03/08/2025 11:00 AM EDT Office Visit [facility] DENT[facility] [address] [place] [address] Farnaz Merida LLD [address] [place] [address] 03/09/2025 12:20 PM EDT Office Visit [facility] DENT[facility] [address] [place] [address] Zac Tian Jr., DMD [address] [place] [address] 03/13/2025 2:40 PM EDT [facility] Visit [facility] [address] [place] [address] Tessy Painting MD [address] [place] [address] 05/04/2025 12:00 PM EST [facility] Visit [facility] [address] [place] [address] Maria G Thapa documented as of this encounter Visit Diagnoses Not on filedocumented in this encounter Care Teams Anesthesiology Faculty Relationship Specialty Start Date End Date Corazon Shelton PA-C PCP - General Family Medicine 05/02/22 06/07/24 Tessy Painting MD [address] [place] [address] PCP - General Family Medicine 06/08/24 documented as of this encounter
--- OUTSIDE RECORDS SUMMARY | 2025-03-05 21:49 | XMS_ITS | Encounter Summary ---
Author Organization [employer] Address [address] [facility] 7t [place] [address] Care Team Providers Care Bridge Maintenance Worker Name Role Phone Corazon Shelton PA-C Primary Care Provider Tessy Dawson MD Primary Care Provider [phone] Encounter Details Date Type Department Care Team ([facility] Contact Info) Description 06/03/2022 Orders Only [facility] MEDICAL [address] [place] [address] Aliza Alvarez LPN Social History Tobacco Use [...] Upcoming Encounters Date Type Department Care Team ([facility] Contact Info) Description 03/07/2025 11:50 AM EDT Office Visit [facility] DENTAL [address] [place] [address] Zac Tian Jr., DMD [address] [place] [address] 03/08/2025 11:00 AM EDT Office Visit [facility] DENT[facility] [address] [place] [address] Farnaz Merida LLD [address] [place] [address] 03/09/2025 12:20 PM EDT Office Visit [facility] DENT[facility] [address] [place] [address] Zac Tian Jr., DMD [address] [place] [address] 03/13/2025 2:40 PM EDT Office Visit [facility] MEDICAL [address] [place] [address] Tessy Painting MD [address] [place] [address] 05/04/2025 12:00 PM EST Office Visit [facility] DENTAL [address] [place] [address] Maria G Thapa documented as of this encounter Visit Diagnoses Not on filedocumented in this encounter Care Teams Bridge Maintenance Worker Relationship Specialty Start Date End Date Corazon Shelton PA-C PCP - General Family Medicine 05/02/22 06/07/24 Tessy Painting MD [address] [place] [address] PCP - General Family Medicine 06/08/24 documented as of this encounter
--- OUTSIDE RECORDS SUMMARY | 2025-03-05 21:49 | XMS_ITS | Encounter Summary ---
Author Organization [employer] Address [address] [facility] 7t [place] [address] Care Team Providers Care Biomedical Engineering Aide Name Role Phone Tessy Painting MD Primary Care Provider [phone] Reason for Visit * Reason Onset Date Comments Medication Question 08/09/2024 Encounter Details Date Type Department Care Team (Late st Contact Info) Description 08/09/2024 Telephone [facility] [address] [place] [address] Tessy Painting MD [address] [place] [address] Medication Question Social History Tobacco Use Types [...] 4:14 PM EST Spoke with Joana at [facility]. Advised it is ok per Dr. Painting for them to fill Tramadol for . * Telephone Encounter - Desirae Hayden - 08/15/2024 3:59 PM EST To nursing * Telephone Encounter - Libby Azevedo - 08/15/2024 3:17 PM EST Pharmacist [place] [phone] called: major interaction with medications he just [...] call this again this is truck at [place] [address] pharmacy. I will not be able to dispenses medicine until you callback my phone number here is [phone]. Thank you so much. * Telephone Encounter - Aliza Alvarez LPN - 08/09/2024 9:58 AM EST Spoke with pharmacy. Advised pt. Coming in on the for Vivitrol injection. They will deliver it in a day or two. * Telephone Encounter - Rachael Ellison - 08/09/2024 9:46 AM EST Cici from [facility] [phone] OM to set up Vivitrol delivery documented in this encounter Plan of Treatment Upcoming Encounters Date Type Department Care Team (Late st Contact Info) Description 03/07/2025 11:50 AM EDT Office Visit [facility] DENT[facility] [address] [place] [address] Zac Tain Jr., DMD [address] [place] [address] 03/08/2025 11:00 AM EDT Office Visit [facility] DENT[facility] [address] [place] [address] Farnaz Merida, PATO [address] [place] [address] 03/09/2025 12:20 PM EDT Office Visit [facility] DENT[facility] [address] [place] [address] Zac Tian Jr., DMD [address] [place] [address] 03/13/2025 2:40 PM EDT Office Visit [facility] MEDICAL [address] [place] [address] Tessy Painting MD [address] [place] [address] 05/04/2025 12:00 PM EST Office Visit [facility] DENT[facility] [address] [place] [address] Maria G Thapa documented as of this encounter Visit Diagnoses Not on filedocumented in this encounter Care Teams Biomedical Engineering Aide Relationship Specialty Start Date End Date Tessy Painting MD [address] [place] [address] PCP - General Family Medicine 06/08/24 documented as of this encounter
--- OUTSIDE RECORDS SUMMARY | 2025-03-05 21:49 | XMS_ITS | Clinical Summary ---
Author Organization [email or web address] Address 75 [facility] 7t [place] [address] Care Team Providers Care Facility Practice Specialist Name Role Phone Tessy Painting MD Primary Care Provider [phone] Allergies Active Allergy Reactions Criticality Noted Date [...] 28 days. 112 tablet 025 2024 Active oxyCODONE-acetami nophen (Percocet) 10-325 [...] Encounters Date Type Department Care Team Description 02/28/2025 Telephone [facility] MEDICAL [address] [place] [address] Tessy Painting MD PT1 02/26/2025 3:00 PM EDT Office Visit [facility] DENTAL [address] [place] [address] Kathrin Sales DDS 02/20/2025 Orders Only [facility] [address] [place] [address] Tessy Painting MD 02/13/[address] [address] Tessy Painting MD Other chronic postprocedural pain; Failed back surgical syndrome 02/13/[address] [address] Tessy Painting MD 02/07/[address] [address] Tessy Painting MD MRI disc 01/23/2025 11:20 AM EDT Office Visit [address] [address] Tessy Painting MD Primary insomnia (Primary Dx); Bipolar 1 disorder (CMS/HCC); Chronic pain syndrome; Other chronic postprocedural pain; Failed back surgical syndrome; Psychophysiological insomnia; Grief at loss of child 01/16/[address] [address] Tessy Painting MD Other chronic postprocedural pain; Failed back surgical syndrome 01/11/[address] [address] Tessy Painting MD PT1 01/06/[address] [address] Tessy Painting MD Pulmonary emphysema, unspecified emphysema type (CMS/HCC) 01/04/2025 10:00 AM EDT Office Visit [address] [address] Tessy Painting MD Neural foraminal stenosis of lumbar spine (Primary Dx); Moderate alcohol use disorder, in sustained remission (CMS/HCC); superintendent terminal use of drug; Psychophysiological insomnia; Other chronic postprocedural pain; Failed back surgical syndrome 01/04/2025 Telephone [facility] MEDICAL [address] [place] [address] Tessy Painting MD Care Coordination; Previous Providers Name 12/21/2024 Telephone [facility] [address] [place] [address] Tessy Painting MD Med Dose Change 12/21/2024 Refill [facility] [address] [place] [address] Tessy Painting MD Other chronic postprocedural pain; Failed back surgical syndrome 12/13/2024 Telephone [facility] MEDICAL [address] [place] [address] Tessy Painting MD PT-1 from Last 3 Months Immunizations Immunization Administration [...] Sign Reading Time Taken Comments Blood Pressure 142/83 02/26/2025 2:56 PM EDT Pulse 73 02/26/2025 2:56 PM EDT Temperature 36.6 C (97.8 F) 01/04/2025 [...] Description 03/07/2025 11:50 AM EDT Office Visit [facility] DENTAL [address] [place] [address] Zac Tian Jr., DMD [address] [place] [address] 03/08/2025 11:00 AM EDT Office Visit [facility] DENTAL [address] [place] [address] Farnaz Merida LLD [address] [place] [address] 03/09/2025 12:20 PM EDT Office Visit [facility] DENTAL [address] [place] [address] Zac Tian Jr., DMD 9 [place] [address] 03/13/2025 2:40 PM EDT Office Visit [facility] MEDICAL [address] [place] [address] Tessy Painting MD [address] [place] [address] 05/04/2025 12:00 PM EST Office Visit [place] [facility] D[facility] [address] [place] [address] ElierDaveMaria G Health Maintenance Due Date Last Done Comments CT Colonography 1965 Colonoscopy 1965 Colorectal Cancer Screening 1965 FIT DNA/Cologuard 1965 FIT 1965 FOBT 1965 Sigmoidoscopy 1965 Dental Oral Exam 02/16/2024 08/17/2023, 11/2021, 03/12/2021, Additional history exists Dental X-Ray: Bitewings 08/18/2024 08/17/19 24, 06/08/2023, 02/24/2022, Additional history exists Dental Prophylaxis 11/30/2024 05/31/2024, 0 08/17/2023, 02/24/2022, Additional history exists COVID-19 Vaccine ( - season) 2025 10/25/2020 Influenza Vaccine (#1) 2025 , 04/01/2018, 09/08/2014 Zoster Vaccines (1 of 2) 03/21/2025 Pos [...] Procedure Name Priority Date/Time Associated Diagnosis Comments 29 RESIN-BASED COMPOSITE - 3 SURF, POSTERIOR Routine 02/26/2025 3:00 PM EDT XR CERVICAL SPINE 4V Routine 02/16/2025 9:53 AM EDT XR LUMBAR SPINE COMPLETE 4+ VW Routine 02/16/2025 9:52 AM EDT AMB REFERRAL TO NEUROSURGERY Routine 02/16/2025 Neural foraminal stenosis of lumbar spine MONITOR SCREEN 14-DRUG CLASS PROFILE Routine 01/04/2025 12:00 AM EDT detention use of drug LIPID PANEL, STANDARD Routine 07/21/2024 10:11 AM [...] Recently Relevant to Health Maintenance Results * XR CERVICAL SPINE 4V (02/16/2025 9:53 AM EDT) Anatomical Region Laterality Modality Abdomen Radiographic Maria Antonia ging us Tessy Painting MD IMG XR PROCEDURES Final Result * XR LUMBAR SPINE COMPLETE 4+ VW (02/16/2025 9:52 AM EDT) Anatomical Region Laterality Modality Radiographic Maria Antonia ging us Tessy Painting MD IMG XR PROCEDURES Final Result * Referral to Neurosurgery (02/16/2025) us Tessy Painting MD OUTPATIENT REFERRAL ORDERABLES Final Result * (ABNORMAL) Monitor Screen 14-Drug Class Profile [...] is inconsistent with an expected outcome. Email: [email or web address] Urine (Urine, Random) 01/04/2025 01/05/2025 Comment:Urine, Random Releas e Narrative Resulting Agency Comment Performed at: - [facility] [place], [place] [id number] Workers Compensation Claims Supervisor: Gera Waters PhD, Phone: [phone] Performed at: - [facility] [id number] Workers Compensation Claims Supervisor: Dilcia Cervantes MD, Phone: [phone] us Tessy Painting MD LAB URINE ORDERABLES Final Res ult [facility] * Lipid Panel, Standard 60110 (07/21/2024 10:11 AM EST) Cholesterol, Total 151 100 - 199 mg/dL [facility] Triglycerides 93 0 - 149 mg/dL [facility] 1 HDL Cholesterol 57 >39 mg/dL [facility] 1 VLDL Cholesterol [place] 17 5 - 40 mg/dL [facility] 1 LDL Chol Calc ([facility]) 77 0 - 99 mg/dL [facility] 1 Blood Venous blood specimen / Unknown 07/21/2024 10:11 AM EST 07/21/2024 Narrative [facility] 1 - 07/22/2024 6:05 AM EST Performed at: - [facility] [address] [id number] Workers Compensation Claims Supervisor: Dilcia Cervantes MD, Phone: [phone] us Tessy Painting MD LAB BLOOD ORDERABLES Final Res ult [facility] * HIV 1/2 ANTIGEN AND ANTIBODY (EXTERNAL RESULTS ONLY) (04/16/2016 8:59 AM EDT) HIV Ag/Ab Nonreactive 04/16/2016 8:59 AM EDT Historical Provider LAB POINT OF CARE TEST DOCKED DEVICE UNSOLICITED RESULTS Final Result * Hepatitis C Antibody (04/16/2016 8:58 AM EDT) Hepatitis C Antibody Nonreactive Blood 04/16/2016 8:58 AM EDT Historical Provider POINT OF CARE TEST ENTER/ EDIT ORDERABLES Final Result from Last 3 Months or Most Recently Relevant to Health Maintenance Insurance [facility] ADULT DENTAL - HSN FULL (MEDICAID) Care Teams Facility Practice Specialist Relationship Specialty Start Date End Date Tessy Painting MD [address] [place] [address] PCP - General Family Medicine 06/08/24
--- OUTSIDE RECORDS SUMMARY | 2025-03-05 21:49 | XMS_ITS | Encounter Summary ---
Author Organization [employer] Address 75 [facility] 7t [place] [address] Care Team Providers Care Steamboat Pilot Name Role Phone Tessy Painting MD Primary Care Provider [phone] Reason for Visit * Reason Onset Date Comments PT1 02/28/2025 Encounter Details Date Type Department Care Team (Late st Contact Info) Description 02/28/2025 Telephone [facility] MEDICAL [address] [place] [address] Tessy Painting MD [address] [place] [address] PT1 Social History Tobacco Use Types Packs/Day Years [...] * Telephone Encounter - Desirae Hayden - 03/01/2025 10:03 AM EDT [id number] Paul Gutierrez Jr - [address] [place] [address] [facility] - [address] [place] [address] 02/28/2026 Frequency - 4 per Month - Duration 12 Month(s) Escort:No Wheelchair:No Transportation Phone: [employer] [phone] Authorized * Telephone Encounter - Desirae Hayden - 02/28/2025 3:00 PM EDT PT-1 Request Number [id number] is Pending * Telephone Encounter - Cinthia Ruff - 02/28/2025 2:38 PM EDT Pt-1 Request/Renewal: Request Name of Treating Provider/Treating Facility: [facility] Address of Treating Facility: [address] [place] [address] Patient's Physical Address: [address] [place] [address] Date of Expiration: N/A Next Upcoming Appointment: 03/05/25 at 7 pm 03/10/25 7:15 am [facility] Number: [phone] Does the patient need door to door service? Yes Does the member have an escort? No Does the member carry self-administer oxygen? No Will the member need to be transported with a wheelchair? If so, what kind of wheelchair, electric or manual. No wheelchair Does the member have a service animal? No Patient states he has the [employer] PT1 number and would like a call back once the PT1 is approved, thank you! documented in this encounter Plan of Treatment Upcoming Encounters Date Type Department Care Team (Late st Contact Info) Description 03/07/2025 11:50 AM EDT Office Visit [facility] DENTAL [address] [place] [address] Zac Tian Jr., DMD 9 [place] [address] 03/08/2025 11:00 AM EDT Office Visit [facility] DENTAL [address] [place] [address] Farnaz Merida LLD [address] [place] [address] 03/09/2025 12:20 PM EDT Office Visit [facility] DENTAL [address] [place] [address] Zac Tian Jr., DMD 9 [place] [address] 03/13/2025 2:40 PM EDT Office Visit [facility] MEDICAL [address] [place] [address] Tessy Painting MD [address] [place] [address] 05/04/2025 12:00 PM EST Office Visit [facility] DENTAL [address] [place] [address] Maria G Thapa documented as of this encounter Visit Diagnoses Not on filedocumented in this encounter Care Teams Steamboat Pilot Relationship Specialty Start Date End Date Tessy Painting MD [address] [place] [address] PCP - General Family Medicine 06/08/24 documented as of this encounter
--- OUTSIDE RECORDS SUMMARY | 2025-03-05 21:49 | XMS_ITS | Encounter Summary ---
Author Organization [employer] Address 75 [facility] 7t [place] [address] Care Team Providers Care Tax Examining Technician Name Role Phone Tessy Painting MD Primary Care Provider [phone] Reason for Visit * Reason Onset Date Comments Medication Visit 09/01/2024 Medication Problem 09/01/2024 Encounter Details Date Type Department Care Team (Late st Contact Info) Description 09/01/2024 Telephone [facility] MED[facility] [address] [place] [address] Tessy Painting MD [address] [place] [address] Medication Visit; Medication Problem Social History Tobacco [...] 09/06/2024 8:52 AM EDT I spoke with [facility] and asked that they put Vivitrol on hold for now as he may possibly be going off of it. Next appt.-09/12/24 * Telephone Encounter - Cinthia Ruff - 09/04/2024 2:17 PM EDT Cici ([facility]) called reiterating the same message as below stating someone called us to schedule a Vivitrol delivery for tomorrow (09/03/24), we tried to fill it today (09/04/24) but it got rejected, we want to know if the patient is on Tramadol (50 mg) and if the patient's provider is aware that the Tramadol and Vivitrol will interact, please call back [phone]. * Telephone Encounter - Rachael Ellison - 09/04/2024 1:58 PM EDT [facility] LMOM Tried to fill today, but were rejected due to interactions with traMADol (Ultram) 50 MG tablet [[id number]] [phone] to confirm it's OK to send Vivitrol while pt on Tramadol * Telephone Encounter - Aliza Alvarez LPN - 09/04/2024 10:19 AM EDT [facility] tomorrow or Wednesday. * Telephone Encounter - Rachael Ellison - 09/01/2024 4:09 PM EDT Cici from [facility] Would like cb to schedule Vivitrol delivery [phone] documented in this encounter Plan of Treatment Upcoming Encounters Date Type Department Care Team (Late st Contact Info) Description 03/07/2025 11:50 AM EDT Office Visit [facility] DENTAL [address] [place] [address] Zac Tian Jr., DMD 9 [place] [address] 03/08/2025 11:00 AM EDT Office Visit [facility] DENTAL [address] [place] [address] Farnaz Merida LLD [address] [place] [address] 03/09/2025 12:20 PM EDT Office Visit [facility] DENTAL [address] [place] [address] Zac Tian Jr., DMD 9 [place] [address] 03/13/2025 2:40 PM EDT Office Visit [facility] MEDICAL [address] [place] [address] Tessy Painting MD 70 [place] [address] 05/04/2025 12:00 PM EST Office Visit [facility] DENTAL [address] [place], [place] [id number] Maria G Thapa documented as of this encounter Visit Diagnoses Not on filedocumented in this encounter Care Teams Tax Examining Technician Relationship Specialty Start Date End Date Tessy Painting MD [address] [place], [place] [phone] PCP - General Family Medicine 06/08/24 documented as of this encounter
--- OUTSIDE RECORDS SUMMARY | 2025-03-05 21:49 | XMS_ITS | Encounter Summary ---
Author Organization [employer] Address 75 [facility] 7t [place] [address] Care Team Providers Care Ground Layer Name Role Phone Corazon Shelton PA-C Primary Care Provider Tessy Dawson MD Primary Care Provider [phone] Encounter Details Date Type Department Care Team [...] 03/07/2025 11:50 AM EDT Office Visit [facility] DENTAL [address] [place] [address] Zac Tian Jr., DMD 9 [place] [address] 03/08/2025 11:00 AM EDT Office Visit [facility] DENTAL [address] [place] [address] Farnaz Merida LLD 73 [place] [address] 03/09/2025 12:20 PM EDT Office Visit [facility] DENTAL [address] [place] [address] Zac Tian Jr., DMD 9 [place] [address] 03/13/2025 2:40 PM EDT Office Visit [facility] MEDICAL [address] [place] [address] Tessy Painting MD 70 [place] [address] 05/04/2025 12:00 PM EST Office Visit [facility] DENTAL [address] [place] [address] Maria G Thapa documented as of this encounter Visit Diagnoses Not on filedocumented in this encounter Care Teams Ground Layer Relationship Specialty Start Date End Date Corazon Shelton PA-C PCP - General Family Medicine 05/02/22 06/07/24 Tessy Painting MD [address] [place] [address] PCP - General Family Medicine 06/08/24 documented as of this encounter
--- OUTSIDE RECORDS SUMMARY | 2025-03-05 21:49 | XMS_ITS | Encounter Summary ---
Author Organization [employer] Address [address] [facility] [address] 7t [place] [address] Care Team Providers Care Corporate Communications Specialist Name Role Phone Tessy Painting MD Primary Care Provider [phone] Encounter Details Date Type Department Care Team (Late st Contact Info) Description 02/20/2025 Orders Only [facility] [address] [place] [address] Tessy Painting MD 70 [place] [address] Social History Tobacco Use Types Packs/Day Years [...] on file documented as of this encounter Plan of Treatment Upcoming Encounters Date Type Department Care Team (Late st Contact Info) Description 03/07/2025 11:50 AM EDT Office Visit [facility] DENTAL [address] [place] [address] Zac Tian Jr., DMD 9 [place] [address] 03/08/2025 11:00 AM EDT Office Visit [facility] DENTAL [address] [place] [address] Farnaz Merida LLD [address] [place] [address] 03/09/2025 12:20 PM EDT Office Visit [facility] DENTAL [address] [place] [address] Zac Tian Jr., DMD 9 [place] [address] 03/13/2025 2:40 PM EDT Office Visit [facility] MEDICAL [address] [place] [address] Tessy Painting MD 70 [place] [address] 05/04/2025 12:00 PM EST Office Visit [facility] DENTAL [address] [place] [address] Maria G Thapa documented as of this encounter Procedures Procedure Name Priority Date/Time Associated Diagnosis Comments XR CERVICAL SPINE 4V Routine 02/16/2025 9:53 AM EDT XR LUMBAR SPINE COMPLETE 4+ VW Routine 02/16/2025 9:52 AM EDT documented in this encounter Results * XR CERVICAL SPINE 4V (02/16/2025 9:53 AM EDT) Anatomical Region Laterality Modality Abdomen Radiographic Maria Antonia ging Tessy Painting MD IMG XR PROCEDURES Final Result * XR LUMBAR SPINE COMPLETE 4+ VW (02/16/2025 9:52 AM EDT) Anatomical Region Laterality Modality Radiographic Maria Antonia ging us Tessy Painting MD IMG XR PROCEDURES Final Result documented in this encounter Visit Diagnoses Not on filedocumented in this encounter Care Teams Corporate Communications Specialist Relationship Specialty Start Date End Date Tessy Painting MD [address] [place] [address] PCP - General Family Medicine 06/08/24 documented as of this encounter
--- OUTSIDE RECORDS SUMMARY | 2025-03-05 21:49 | XMS_ITS | Encounter Summary ---
Author Organization [employer] Address 75 [facility] 7t [place] [address] Care Team Providers Care Commercial Lines Manager Name Role Phone Corazon Shelton PA-C Primary Care Provider Tessy Dawson MD Primary Care Provider [phone] Reason for Visit * Reason Onset Date Comments Vitral Delivery 11/19/2023 Encounter Details Date Type Department Care Team ([facility] Contact Info) Description 11/19/2023 Telephone [facility] MEDICAL [address] [place] [address] Corazon Shelton PA-C Vitral Delivery Social History [...] EDT Pts vivitrol will be delivered to [facility] 12/02/23 * Telephone Encounter - Varsha Magana - 11/19/2023 3:50 PM EDT [facility] LMOM asking to speak to nursing about viral delivery documented in this encounter Plan of Treatment Upcoming Encounters Date Type Department Care Team (Late Contact Info) Description 03/07/2025 11:50 AM EDT Office Visit [facility] DENTAL [address] [place] [address] Zac Tian Jr., DMD 9 [place] [address] 03/08/2025 11:00 AM EDT Office Visit [facility] DENTAL [address] [place] [address] Farnaz Merida LLD [address] [place] [address] 03/09/2025 12:20 PM EDT Office Visit [facility] DENTAL [address] [place] [address] Zac Tian Jr., DMD 9 [place] [address] 03/13/2025 2:40 PM EDT Office Visit [facility] MEDICAL [address] [place] [address] Tessy Painting MD 70 [place] [address] 05/04/2025 12:00 PM EST Office Visit [facility] DENTAL [address] [place] [address] Maria G Thapa documented as of this encounter Visit Diagnoses Not on filedocumented in this encounter Care Teams Commercial Lines Manager Relationship Specialty Start Date End Date Corazon Shelton PA-C PCP - General Family Medicine 05/02/22 06/07/24 Tessy Painting MD [address] [place] [address] PCP - General Family Medicine 06/08/24 documented as of this encounter
--- OUTSIDE RECORDS SUMMARY | 2025-03-05 21:49 | XMS_ITS | Encounter Summary ---
Author Organization [employer] Address 75 [facility] 7t [place] [address] Care Team Providers Care Machine Clipper Name Role Phone Corazon Shelton PA-C Primary Care Provider Tessy Dawson MD Primary Care Provider Encounter Details Date Type Department Care Team [...] Visit [facility] DENTAL [address] [place] [address] Zac Tian Jr., DMD 9 [place] [address] 03/08/2025 11:00 AM EDT Office Visit [facility] DENTAL [address] [place] [address] Farnaz Merida LLD [address] [place] [address] 03/09/2025 12:20 PM EDT Office Visit [facility] DENTAL [address] [place] [address] Zac Tian Jr., DMD 9 [place] [address] 03/13/2025 2:40 PM EDT Office Visit [facility] MEDICAL [address] [place] [address] Tessy Painting MD 70 [place] [address] 05/04/2025 12:00 PM EST Office Visit [facility] DENTAL [address] [place] [address] Maria G Thapa documented as of this encounter Visit Diagnoses Not on filedocumented in this encounter Care Teams Machine Clipper Relationship Specialty Start Date End Date Corazon Shelton PA-C PCP - General Family Medicine 05/02/22 06/07/24 Tessy Painting MD [address] [place] [address] PCP - General Family Medicine 06/08/24 documented as of this encounter
== END 2025-03-05 18:46 | disposition home or self-care (01) ==
LOC: HO.MRI 18:45
PROVIDERS: PCP Family Medicine; Visit Provider Physician Assistant
DX: G95.9 Disease of spinal cord, unspecified (principal)
CPT/HCPCS: 72141

== ENCOUNTER 2025-04-21 09:12 | Outpatient (REF) | payer MEDICAID, SELFPAY ==
--- OUTSIDE RECORDS SUMMARY | 2025-04-20 12:20 | XMS_ITS | Encounter Summary ---
Author Organization [employer] Address [address] [facility] 7t [place] [address] Care Team Providers Care Communication Specialist Name Role Phone Tessy Painting MD Primary Care Provider [phone] Miryam Oconnell Unavailable Reason for Visit * Reason Comments Filling Encounter Details Date Type Department Care Team ([facility] Contact Info) Description 04/20/2025 12:20 PM EDT Office Visit [facility] [address] [place] [address] Zac Tian Jr., DMD [address] [place] [address] Social History Tobacco Use Types Packs/Day Years [...] the past 12 months, has t he [employer], gas, oil or water company threatened to [...] on file documented as of this encounter Last Filed Vital Signs Vital Sign Reading Time Taken Comments Blood Pressure 132/79 04/20/2025 12:31 PM EDT Pulse 65 04/20/2025 12:31 PM EDT Temperature - - Respiratory Rate - - Oxygen Saturation - - Inhaled Oxygen Concentration - - Weight - - Height - - Body Mass Index - - documented in this encounter Progress Notes * Zac Tian Jr., DMD - 04/20/2025 12:20 PM EDT Composite Muslim Tooth/Teeth Treated: #12-DO [ pt fractured D ridge to gingiva] #18-F5 #21-F5 Anesthesia: Local anesthesia administered: 2 cartridge of lido with 1:100,000 epinephrine #18 & #21 . 1 carp septo #12 . Profound anesthesia was confirmed prior to treatment. Preparation: Existing restorative material removed. Caries excavation completed using a combination of high-speed burs, slow-speed handpiece with burs Matrix Placement: A matrix band was placed and stabilized with interproximal wedges between the tooth and adjacent teeth. Muslim Protocol: Prep was rinsed, dried, agent based modeler applied and light-cured for 20 seconds. Composite placed in multiple increments and each layer light-cured. Matrix band removed. Floss used to verify interproximal contact and marginal integrity. #12 blade used to remove excess flash from embrasures. Muslim finished and polished. Occlusion: Occlusion verified using [employer]. High spots adjusted until ideal occlusal marie were evident throughout the quadrant. Patient confirmed no high feeling on centric or excursive movements. Post-Operative Instructions: Patient advised that residual numbness may impact occlusal assessment. Instructed to contact the office immediately if sikh feels high once anesthesia wears off. Post-op complications discussed, including the potential for transient sensitivity or the rare possibility of requiring endodontic therapy if pulpal irritation occurs. Patient advised to monitor for signs of irreversible pulpitis and call the office if symptoms develop. Patient Interaction: Patient expressed satisfaction with the sikh. All questions regarding the procedure, prognosis, and aftercare were addressed. Prognosis: Good. documented in this encounter Plan of Treatment Upcoming Encounters Date Type Department Care Team (Late st Contact Info) Description 05/01/2025 3:00 PM EST Office Visit [facility] [address] [place] [id number] Tessy Painting MD [address] [place] [address] 05/04/2025 12:00 PM EST Office Visit [facility] [address] [place] [phone] Maria G Thapa documented as of this encounter Procedures Procedure Name Priority Date/Time Associated Diagnosis Comments 12 DO RESIN-BASED COMPOSITE - 2 SURF, POSTERIOR Routine 04/20/2025 12:20 PM EDT 21 B(V) RESIN-BASED COMPOSITE - 1 SURF, POSTERIOR Routine 04/20/2025 12:20 PM EDT 18 B(V) RESIN-BASED COMPOSITE - 1 SURF, POSTERIOR Routine 04/20/2025 12:20 PM EDT CASE PRESENTATION, DETAILED AND EXTENSIVE TREATMENT PLANNING Routine 04/20/2025 12:20 PM EDT documented in this encounter Visit Diagnoses Not on filedocumented in this encounter Care Teams Communication Specialist Relationship Specialty Start Date End Date Tessy Painting MD [address] [place] [address] PCP - General Family Medicine 06/08/24 Miryam Oconnell 04/04/25 documented as of this encounter
--- NOTE | ~2025-04-21 | CT_ITS ---
CLINICAL HISTORY: M54.9 - Dorsalgia, unspecified --- Additional Notes or Special Instructions: h o lumbar fusion Exam: CT lumbar spine without IV contrast Comparison: DX/SR - XR LUMBAR SPINE 4 OR MORE VIEWS - 02/16/25 13:43 EDT Findings: Rudimentary 12th ribs. L5 sacralization. 4 mm anterolisthesis L4-5. No acute fracture. Status post posterior decompression L1 to L5, L1 to L3 vertical rods with locking pedicle screws, the rods extend to upper L5, additional pedicle screws bilateral L4 and L5, intact hardware without apparent loosening. Severe sclerotic and small subcortical cystic changes, vertebral osteophytes T12-L1. Unremarkable paraspinal musculature. Imaged abdominal contents demonstrate nothing unusual. High density enteric contrast in the colon. Mild atherosclerotic calcification of the aorta. Lung bases clear. T12-L1:Near-complete disc height loss, diffuse posterior bulge of the disklike material, thickened ligamentum flavum. Aeep-oi-fuvadtex central canal stenosis and moderate foraminal narrowing bilaterally. Facet arthropathy. L1-L2, L2-3, L3-4: Surgical levels. Severe disc height loss, no obvious disc protrusion or bulge. Spinal canal is not well seen due to hardware related artifact, no high-grade stenosis or foraminal narrowing. Facet arthrosis bilaterally. L4-5: Surgical level. Complete disc height loss, no obvious disc protrusion or bulge. No central canal stenosis. Mild foraminal narrowing mostly due to grade 1 anterolisthesis. L5-S1: Rudimentary disc without disc protrusion or bulge. No central canal stenosis or foraminal narrowing. Impression: 1. Extensive postsurgical changes of lumbar spine as discussed, no acute hardware complication. 2. L5 sacralization, grade 1 anterolisthesis L4-5. 3. Degenerative spondylosis of lumbar spine. This document has been electronically signed by: Tania Harp MD on 04/23/2025 13:58:09
--- OUTSIDE RECORDS SUMMARY | 2025-04-21 09:14 | XMS_ITS | Encounter Summary ---
Author Organization [employer] Address [address] [facility] 7t [place] [address] Care Team Providers Care Customer Sales Distributor Name Role Phone Tessy Painting MD Primary Care Provider [phone] Miryam Oconnell Unavailable Raffi Crespo Unavailable Encounter Details Date Type Department Care Team (Late st Contact Info) Description 04/16/2025 Results Follow-Up [facility] [address] [place] [address] Tessy Painting MD [address] [place] [address] CT Abdomen Pelvis w/ Contrast Social History Tobacco Use Types Packs/Day Years [...] the past 12 months, has t he [employer], gas, oil or water company threatened to [...] Description 05/01/2025 3:00 PM EST Office Visit [facility] MED[facility] [address] [place] [address] Tessy Painting MD [address] [place] [address] 05/04/2025 12:00 PM EST Office Visit [facility] [address] [place] [address] Maria G Thapa documented as of this encounter Visit Diagnoses Not on filedocumented in this encounter Care Teams Customer Sales Distributor Relationship Specialty Start Date End Date Tessy Painting MD [address] [place] [address] PCP - General Family Medicine 06/08/24 Miryam Oconnell 04/04/25 Raffi Crespo 04/16/25 04/16/25 documented as of this encounter
--- OUTSIDE RECORDS SUMMARY | 2025-04-21 09:14 | XMS_ITS ---
Author Organization [employer] Address [address] [facility] [address] [place] [address] Care Team Providers Care News Reel Cameraman Name Role Phone Tessy Painting MD Primary Care Provider [phone] Miryam Oconnell CM Complex Status:Outreach In Progress (Enrolling) Start date:04/04/2025 Enrollment reason:Risk Strat Case Team Name Relationship Phone Miryam Oconnell(Responsible Staff) Continued Care and Services Coordination
--- OUTSIDE RECORDS SUMMARY | 2025-04-21 09:14 | XMS_ITS | Encounter Summary ---
Author Organization [employer] Address [address] [facility] 7t [place] [address] Care Team Providers Care Hydraulics Engineer Name Role Phone Tessy Painting MD Primary Care Provider [phone] Miryam Oconnell Unavailable Encounter Details Date Type Department Care Team (Late st Contact Info) Description 04/18/2025 Patient Outreach [facility] ([facility]) Department [address] [phone] Sidra Manning RN Social History Tobacco Use Types Packs/Day Years [...] Description 05/01/2025 3:00 PM EST Office Visit [facility] [address] [place] [address] Tessy Painting MD [address] [place] [address] 05/04/2025 12:00 PM EST Office Visit [facility] [address] [place] [address] Maria G Thapa documented as of this encounter Visit Diagnoses Not on filedocumented in this encounter Care Teams Hydraulics Engineer Relationship Specialty Start Date End Date Tessy Painting MD [address] [place] [place] [address] PCP - General Family Medicine 06/08/24 Miryam Oconnell 04/04/25 documented as of this encounter
--- OUTSIDE RECORDS SUMMARY | 2025-04-21 09:14 | XMS_ITS ---
Author Organization [employer] Address [address] [facility] [address] [place] [address] Care Team Providers Care Interpreter Translator Name Role Phone Tessy Painting MD Primary Care Provider [phone] Miryam Oconnell Unavailable [facility] Complex Status:Closed (Closed) Start date:04/16/2025 Enrollment reason:ADT Feed End date:04/16/2025 Close reason:Declined to Participate [place] [facility] [facility]3 eligible Continued Care and Services Coordination
--- OUTSIDE RECORDS SUMMARY | 2025-04-21 09:14 | XMS_ITS | Encounter Summary ---
Author Organization [employer] Address [address] [facility] [address] [place] [address] Care Team Providers Care Mixer And Scaler Name Role Phone Corazon Shelton PA-C Primary Care Provider Tessy Dawson MD Primary Care Provider [phone] Miryam Oconnell Unavailable Raffi Crespo Unavailable Encounter [...] Description 05/01/2025 3:00 PM EST Office Visit [facility] MED[facility] [address] [place] [address] Tessy Painting MD [address] [place] [address] 05/04/2025 12:00 PM EST Office Visit [facility] [address] [place] [address] Maria G Thapa documented as of this encounter Visit Diagnoses Not on filedocumented in this encounter Care Teams Mixer And Scaler Relationship Specialty Start Date End Date Corazon Shelton PA-C PCP - General Family Medicine 05/02/22 06/07/24 Tessy Painting MD [address] [place] [address] PCP - General Family Medicine 06/08/24 Miryam Oconnell 04/04/25 Raffi Crespo 04/16/25 04/16/25 documented as of this encounter
--- OUTSIDE RECORDS SUMMARY | 2025-04-21 09:14 | XMS_ITS | Encounter Summary ---
Author Organization [employer] Address [address] [facility] 7[address] [place] [address] Care Team Providers Care Concrete Float Maker Name Role Phone Tessy Painting MD Primary Care Provider [phone] Miryam Oconnell Unavailable Raffi Crespo Unavailable Encounter Details Date Type Department Care Team (Late st Contact Info) Description 04/16/2025 Patient Outreach [facility] Department [address] [phone] Raffi Crespo Social History Tobacco Use Types Packs/Day Years [...] on file documented as of this encounter Progress Notes * Raffi Crespo - 04/16/2025 1:06 PM EDT 1st outreach Declined to participate documented in this encounter Plan of Treatment Upcoming Encounters Date Type Department Care Team (Late st Contact Info) Description 05/01/2025 3:00 PM EST Office Visit [facility] [address] [place] [address] Tessy Painting MD [address] [place] [address] 05/04/2025 12:00 PM EST Office Visit [facility] [address] [place] [address] Maria G Thapa documented as of this encounter Visit Diagnoses Not on filedocumented in this encounter Care Teams Concrete Float Maker Relationship Specialty Start Date End Date Tessy Painting MD [address] [place] [address] PCP - General Family Medicine 06/08/24 Miryam Oconnell 04/04/25 Raffi Crespo 04/16/25 04/16/25 documented as of this encounter
--- OUTSIDE RECORDS SUMMARY | 2025-04-21 09:14 | XMS_ITS | Encounter Summary ---
Author Organization [employer] Address [address] [facility] 7t [place] [address] Care Team Providers Care Dietary Supervisor Name Role Phone Tessy Painting MD Primary Care Provider [phone] Miryam Oconnell Unavailable Reason for Visit * Reason Comments [facility]3 Care Managment 2nd outreach Encounter Details Date Type Department Care Team (Latest Contact Info) Description 04/18/2025 Patient Outreach [facility] (C3) Department [address] [phone] Sidra Manning, RN [facility]3 Care Managment (2nd outreach) Social History Tobacco Use Types Packs/Day Years [...] Description 05/01/2025 3:00 PM EST Office Visit [facility] MED[facility] [address] [place] [address] Tessy Painting MD [address] [place] [address] 05/04/2025 12:00 PM EST Office Visit [facility] [address] [place] [address] Maria G Thapa documented as of this encounter Visit Diagnoses Not on filedocumented in this encounter Care Teams Dietary Supervisor Relationship Specialty Start Date End Date Tessy Painting MD [address] [place] [address] PCP - General Family Medicine 06/08/24 Miryam Oconnell 04/04/25 documented as of this encounter
--- OUTSIDE RECORDS SUMMARY | 2025-04-21 09:14 | XMS_ITS | Clinical Summary ---
Author Organization [employer] Address 75 [facility] 7t [place] [address] Care Team Providers Care Program Specialist Name Role Phone Tessy Painting MD Primary Care Provider [phone] Miryam Oconnell Unavailable Allergies Active Allergy Reactions Criticality Noted Date [...] MCG/ACT inhalerIndication s:Pulmonary emphysema, unspecified emphysema type INHALE TWO PUFFS INTO THE LUNGS EVERY 4 HOURS NEEDED FOR SHORTNESS OF BREATH OR WHEEZING 18 g 2 025 Active traZODone (Desyrel) 100 MG tabletIndications :Primary insomnia Take 1 tablet (100 mg) by mouth at bedtime. 90 tablet 3 025 2025 Active DULoxetine (Cymbalta) [address] capsuleIndication s:Bipolar 1 disorder (CMS/HCC) (HCC) Take 1 capsule (60 mg) by mouth Once per day. For PAIN modulation 90 capsule 025 2025 Active meloxicam (Mobic) 15 MG tabletIndications :Chronic pain syndrome TAKE ONE TABLET BY MOUTH EVERY DAY FOR ANTI INFLAMMATION 90 tablet Active doxepin (SINEquan) 10 MG capsuleIndication s:Psychophysiolog ical insomnia Take 1 capsule (10 mg) by mouth at bedtime. To help stay asleep 30 capsule 1 025 2024 Active pregabalin (Lyrica) 150 MG capsuleIndication s:Chronic pain syndrome Take 1 capsule (150 mg) by mouth 3 times daily. 90 capsule 1 Active oxyCODONE-acetami nophen (Percocet) 10-325 MG tabletIndications :Other chronic postprocedural pain,Failed back surgical syndrome Take 1 tablet by mouth every 6 (six) hours if needed for severe pain for up to 28 days. 112 tablet 2024 Active meloxicam (Mobic) 15 MG tabletIndications :Chronic pain syndrome Take 1 tablet (15 mg) by mouth Once per day. For anti inflammation 90 tablet 025 2024 Discontinued doxepin (SINEquan) 10 MG capsuleIndication s:Psychophysiolog ical insomnia Take 1 capsule (10 mg) by mouth at bedtime. To help stay asleep 30 capsule 1 025 2024 Discontinued(R eorder (will not trigger notification to Pharmacy)) pregabalin (Lyrica) 150 MG capsuleIndication s:Chronic pain [...] eorder (will not trigger notification to Pharmacy)) ciprofloxacin (Cipro) 500 MG tabletIndications :Abscess of right hand Take 1 tablet (500 mg) by mouth 2 times daily for 5 days. 10 tablet 025 2024 cefpodoxime (Vantin) 100 MG tabletIndications :Abscess of right hand Take 1 tablet (100 mg) by mouth 2 times daily for 5 days. 10 tablet 025 2024 Hospital, Clinic, or Other Facility Administered Medication [...] Date Alcoholic 08/07/2022 01/04/2025 Bipolar 1 disorder ([facility]) 08/07/2022 01/04/2025 Encounters Date Type Department Care Team Description 04/20/2025 12:20 PM EDT Office Visit [facility] DENTAL [address] [place] [address] Zac Tian Jr., DMD 04/18/2025 Patient Outreach [facility] () Department [address] [place], [place] [id number] Sidra Manning, RN C3 Care Managment (2nd outreach) 04/18/2025 Patient Outreach [facility] ([facility]) Department [address] [place] [phone] Sidra Manning, RN 04/16/2025 Patient Outreach [facility] ([facility]) Department [address] [place], [place] [phone] Raffi Crespo 04/16/2025 Results Follow-Up [address] [address] Tessy Painting MD CBC auto differential 04/16/2025 Results Follow-Up [address] [phone] Abdomen Pelvis w/ Contrast 04/16/2025 Orders Only [facility] Information Management [address] [place] [address] Tessy Painting MD 04/16/2025 Patient Outreach [facility] () Department [address] [place], [place] [phone] Raffi Crespo care management 04/13/2025 12:20 PM EDT Office Visit [facility] DENT[facility] [address] [place] [address] Zac Tian Jr., DMD 04/09/[address] [address] Tessy Painting MD Flank Pain; Referral; Call Back Request 04/05/[address] [address] Tessy Painting MD Other chronic postprocedural pain; Failed back surgical syndrome 04/05/2025 Patient Outreach [facility] () Department [address] [place], [place] [phone] Miryam Oconnell 04/04/2025 Patient Outreach [facility] () Department [address] [place] [phone] Miryam Oconnell 04/03/[address] [address] Tessy Painting MD Psychophysiological insomnia; Chronic pain syndrome 04/03/2025 Refill [facility] MEDICAL [address] [place] [address] Tessy Painting MD Chronic pain syndrome 03/30/2025 12:20 PM EDT Office Visit [facility] DENT[facility] [address] [place] [address] Zac Tian Jr., DMD 03/21/[address] [address] Tessy Painting MD Med Refill 03/14/[address] [address] Tessy Painting MD medication request 03/13/2025 2:40 PM EDT Office Visit [facility] MEDICAL [address] [place] [address] Tessy Painting MD Abscess of right hand (Primary Dx); Immunization due; Puncture wound of right wrist with complication, sequela 03/09/[address] [address] Tessy Painting MD Other chronic postprocedural pain; Failed back surgical syndrome 03/08/2025 11:00 AM EDT Office Visit [facility] D[facility] [address] [place] [address] Farnaz Merida LLD 03/07/2025 11:50 AM EDT Office Visit [facility] D[facility] [address] [place] [address] Zac Tian Jr., DMD 03/06/[address] [address] Tessy Painting MD Chronic pain syndrome 03/06/2025 Orders Only [facility] [address] [place] [address] Tessy Painting MD 02/28/[address] [address] Tessy Painting MD PT1 02/26/2025 3:00 PM EDT Office Visit [facility] DENTAL [address] [place] [address] Kathrin Sales, BALS 02/20/2025 Orders Only [facility] [address] [place] [address] Tessy Painting MD 02/13/[address] [address] Tessy Painting MD Other chronic postprocedural pain; Failed back surgical syndrome 02/13/2025 Telephone [facility] MEDICAL [address] [place] [address] Tessy Painting MD 02/07/2025 Telephone [facility] MEDICAL [address] [place] [address] Tessy Painting MD MRI disc 01/23/2025 11:20 AM EDT Office Visit [facility] MEDICAL [address] [place] [address] Tessy Painting MD Primary insomnia (Primary Dx); Bipolar 1 disorder (CMS/HCC); Chronic pain syndrome; Other chronic postprocedural pain; Failed back surgical syndrome; Psychophysiological insomnia; Grief at loss of child from Last 3 Months Immunizations Immunization Administration Dates Next Due Hep A, Adult 01/04/2019 Influenza injectable quadrivalent preservative f ree 04/01/2018 Influenza, IIV3, injectable 03/11/2020 Influenza, seasonal, injectable, preservative fr ee 09/08/2014 Radha SARS-CoV-2 Vaccination 10/25/2020 PPD Test 11/06/2013 Tdap 03/13/2025,02/15/2020 Family History Medical History Relation Name Comments [...] Pulse 65 04/20/2025 12:31 PM EDT Temperature 36.5 C (97.7 F) 03/13/2025 2:50 PM EDT Respiratory Rate 16 03/13/2025 2:50 PM EDT Oxygen Saturation 94% 01/23/2025 11:40 AM EDT Inhaled Oxygen Concentration - - Weight 59.9 kg (132 lb) 03/13/2025 2:50 PM EDT Height 167.6 cm (5' 6 ) 03/13/2025 2:50 PM EDT Body Mass Index 21.31 03/13/2025 2:50 PM EDT Plan of Treatment Upcoming Encounters Date Type Department Care Team (Late st Contact Info) Description 05/01/2025 3:00 PM EST Office Visit [facility] MEDICAL [address] [place] [address] Tessy Painting MD [address] [place] [address] 05/04/2025 12:00 PM EST Office Visit [facility] DENTAL [address] [place] [address] Maria G Thapa Health Maintenance Due Date Last Done Comments CT Colonography 1965 Colonoscopy 1965 Colorectal Cancer Screening 1965 FIT DNA/Cologuard 1965 FIT 1965 FOBT 1965 Sigmoidoscopy 1965 Zoster Vaccines (1 of 2) 2015 Dental Oral Exam 02/16/2024 08/17/2023, 11/2021, 03/12/2021, Additional history exists Dental X-Ray: Bitewings 08/18/2024 08/17/19 24, 06/08/2023, 02/24/2022, Additional history exists Dental Prophylaxis 11/30/2024 05/31/2024, 0 08/17/2023, 02/24/2022, Additional history exists COVID-19 Vaccine ( season) 2025 10/25/2020 Influenza Vaccine (#1) 2025 0, 04/01/2018, 09/08/2014 Pneumococcal Vaccine: 50+ Years (1 of 2 - PCV) 05/17/2025 Postponed from 1984 (Other Patient Reasons) Disability Screening 08/15/2025 08/15/2024 Alcohol/Substance Use Screening 11/14/2025 11/14/2024 Depression Screening 11/14/2025 11/14/2024, 11/15/19 Hepatitis B Vaccines (1 of 3 - 19+ 3-dose series) 11/14/2025 Postponed from 1984 (Patient Refused) SDOH Screening 11/14/2025 11/14/2024 Tobacco Screening 03/13/2026 03/13/2025 Dental X-Ray: Full Mouth 08/18/2026 08/17/2023, 07/2017 Lipid Panel 07/21/2029 07/21/2024, 04/16/2016 DTaP/Tdap/Td Vaccines (3 - Td or Tdap) 03/13/2035 03/13/2025, 02/15/2020 RSV Patients and Patients Aged 60 [...] Procedure Name Priority Date/Time Associated Diagnosis Comments CASE PRESENTATION, DETAILED AND EXTENSIVE TREATMENT PLANNING Routine 04/20/2025 12:20 PM EDT 21 B(V) RESIN-BASED COMPOSITE - 1 SURF, POSTERIOR Routine 04/20/2025 12:20 PM EDT 18 B(V) RESIN-BASED COMPOSITE - 1 SURF, POSTERIOR Routine 04/20/2025 12:20 PM EDT 12 DO RESIN-BASED COMPOSITE - 2 SURF, POSTERIOR Routine 04/20/2025 12:20 PM EDT CASE PRESENTATION, DETAILED AND EXTENSIVE TREATMENT PLANNING Routine 04/13/2025 12:20 PM EDT 2 B RESIN-BASED COMPOSITE - 1 SURF, POSTERIOR Routine 04/13/2025 12:20 PM EDT CBC WITH AUTO DIFFERENTIAL Routine 04/13/2025 11:55 AM EDT Abdominal pain, RLQ (right lower quadrant) BASIC METABOLIC PANEL Routine 04/13/2025 11:55 AM EDT Abdominal pain, RLQ (right lower quadrant) CBC WITH AUTO DIFFERENTIAL Routine 04/13/2025 11:[address] ABDOMEN PELVIS W CONTRAST STAT 04/13/2025 Abdominal pain, RLQ (right lower quadrant) History of colectomy CASE PRESENTATION, DETAILED AND EXTENSIVE TREATMENT PLANNING Routine 03/30/2025 12:20 PM EDT 7 F(V) RESIN-BASED COMPOSITE - 1 SURF, ANTERIOR Routine 03/30/2025 12:20 PM EDT 6 F RESIN-BASED COMPOSITE - 1 SURF, ANTERIOR Routine 03/30/2025 12:20 PM EDT CASE PRESENTATION, DETAILED AND EXTENSIVE TREATMENT PLANNING Routine 03/08/2025 11:00 AM EDT 15 MO AMALGAM - 2 SURF, PRIMARY OR PERMANENT Routine 03/08/2025 11:00 AM EDT 28 BB(V) RESIN-BASED COMPOSITE - 1 SURF, POSTERIOR Routine 03/07/2025 11:50 AM EDT CASE PRESENTATION, DETAILED AND EXTENSIVE TREATMENT PLANNING Routine 03/07/2025 11:50 AM EDT 12 BB(V) RESIN-BASED COMPOSITE - 1 SURF, POSTERIOR Routine 03/07/2025 11:50 AM EDT 11 MF RESIN-BASED COMPOSITE - 2 SURF, ANTERIOR Routine 03/07/2025 11:50 AM EDT 10 FF(V) RESIN-BASED COMPOSITE - 1 SURF, ANTERIOR Routine 03/07/2025 11:50 AM EDT MRI CERVICAL SPINE WO CONTRAST Routine 03/05/2025 9:40 AM EDT 29 RESIN-BASED COMPOSITE - 3 SURF, POSTERIOR Routine 02/26/2025 3:00 PM EDT XR CERVICAL SPINE 4V Routine 02/16/2025 9:53 AM EDT XR LUMBAR SPINE COMPLETE 4+ VW Routine 02/16/2025 9:52 AM EDT AMB REFERRAL TO NEUROSURGERY Routine 02/16/2025 Neural foraminal stenosis of lumbar spine LIPID PANEL, STANDARD Routine 07/21/2024 10:11 AM [...] Recently Relevant to Health Maintenance Results * CBC auto differential [[id number]] (04/13/2025 11:55 AM EDT) Only the most recent of2 resultswithin the time period is included. White Blood Cell Count 10.1 3.4 - 10.8 x10E3/uL [facility] Red Blood Cell Count 5.25 4.14 - 5.80 x10E6/uL [facility] Hemoglobin 17.0 13.0 - 17.7 g/dL [facility] Hematocrit 50.0 37.5 - 51.0 % [facility] MCV 95 79 - 97 fL [facility] MCH 32.4 26.6 - 33.0 pg [facility] MCHC 34.0 31.5 - 35.7 g/dL [facility] RDW 13.8 11.6 - 15.4 % [facility] Platelet Count 388 150 - 450 x10E3/uL [facility] Neutrophils 64 Not Estab. % [facility] Lymphocytes 23 Not Estab. % [facility] Monocytes 8 Not Estab. % [facility] Eosinophils 4 Not Estab. % [facility] Basophils 1 Not Estab. % [facility] Absolute Neutrophils 6.6 1.4 - 7.0 x10E3/uL [facility] Absolute Lymphocytes 2.3 0.7 - 3.1 x10E3/uL [facility] Absolute Monocytes 0.8 0.1 - 0.9 x10E3/uL [facility] Absolute Eosinophils 0.4 0.0 - 0.4 x10E3/uL [facility] Absolute Basophils 0.1 0.0 - 0.2 x10E3/uL [facility] Immature Granulocytes 0 Not Estab. % [facility] Immature Grans (Abs) 0.0 0.0 - 0.1 x10E3/uL [facility] Blood Venous blood specimen / Unknown 04/13/2025 11:55 AM EDT 04/13/2025 Narrative Resulting Agency Comment Performed at: 01 - [address] [id number] Management Architect: Dilcia Cervantes MD, Phone: [phone] us Tessy Painting MD LAB BLOOD ORDERABLES Final Res ult [facility] [address] [place] [address] * Basic Metabolic Panel [id number] (04/13/2025 11:55 AM EDT) Glucose 80 70 - 99 mg/dL [facility] Urea Nitrogen (BUN) 8 6 - 24 mg/dL [facility] Creatinine, Serum 0.90 0.76 - 1.27 mg/dL [facility] eGFR 98 >59 mL/min/1.7 3 [facility] BUN/Creatinine Ratio 9 9 - 20 [facility] Sodium 140 134 - 144 mmol/L [facility] Potassium 4.3 3.5 - 5.2 mmol/L [facility] Chloride 102 96 - 106 mmol/L [facility] Carbon Dioxide 20 20 - 29 mmol/L [facility] Calcium 9.6 8.7 - 10.2 mg/dL [facility] Blood Venous blood specimen / Unknown 04/13/2025 11:55 AM EDT 04/13/2025 Narrative Resulting Agency Comment Performed at: 01 - [facility] [address] [place], [place] [id number] Management Architect: Dilcia Cervantes MD, Phone: [phone] us Tessy Painting MD LAB BLOOD ORDERABLES Final Res ult [facility] [address] [place] [address] * CT Abdomen Pelvis w/ Contrast (04/13/2025) Anatomical Region Laterality Modality Body, Pelvis, Abdomen Computed T omography us Tessy Painting MD IMG CT PROCEDURES Final Result * MRI CERVICAL SPINE WO CONTRAST (03/05/2025 9:40 AM EDT) Anatomical Region Laterality Modality Magnetic Resonan ce Tessy Painting MD IMG MRI PROCEDURES Final Resul t * XR CERVICAL SPINE 4V (02/16/2025 9:53 [...] MD OUTPATIENT REFERRAL ORDERABLES Final Result * Lipid Panel, Standard [id number] (07/21/2024 10:11 AM EST) Cholesterol, Total 151 [...] 6:05 AM EST Performed at: - [facility] [address] [id number] Management Architect: Dilcia Cervantes MD, Phone: [phone] us Tessy Painting MD LAB BLOOD ORDERABLES [...] Most Recently Relevant to Health Maintenance [place] [address] [place] [address] C3 D[facility] STAND ADULT DENTAL - HSN FULL (MEDICAID) Care Teams Program Specialist Relationship Specialty Start Date End Date Tessy Painting MD [address] [place] [address] PCP - General Family Medicine 06/08/24 Miryam Oconnell 04/04/25
--- OUTSIDE RECORDS SUMMARY | 2025-04-21 09:14 | XMS_ITS | Encounter Summary ---
Author Organization [employer] Address [address] [facility] 7t [place] [address] Care Team Providers Care Factory Worker Name Role Phone Tessy Painting MD Primary Care Provider [phone] Miryam Oconnell Unavailable Raffi Crespo Unavailable Encounter Details Date Type Department Care Team (Late st Contact Info) Description 02/20/2025 Orders Only [facility] [address] [place], [place] [phone] Tessy Painting MD [address] [place] [address] Social History Tobacco Use Types Packs/Day Years [...] Description 05/01/2025 3:00 PM EST Office Visit [facility] MEDICAL [address] [place] [address] Tessy Painting MD [address] [place] [address] 05/04/2025 12:00 PM EST Office Visit [facility] DENTAL [address] [place] [address] Maria G Thapa documented as of this [...] on filedocumented in this encounter Care Teams Factory Worker Relationship Specialty Start Date End Date Tessy Painting MD [address] [place] [address] PCP - General Family Medicine 06/08/24 Miryam Oconnell 04/04/25 Raffi Crespo 04/16/25 04/16/25 documented as of this encounter
--- OUTSIDE RECORDS SUMMARY | 2025-04-21 09:14 | XMS_ITS | Encounter Summary ---
Author Organization [employer] Address 75 [facility] 7t [place] [address] Care Team Providers Care Field Assistant Name Role Phone Tessy Painting MD Primary Care Provider [phone] Miryam Oconnell Unavailable Raffi Crespo Unavailable Encounter Details Date Type Department Care Team (Late st Contact Info) Description 03/06/2025 Orders Only [facility] [address] [place], [place] [phone] Tessy Painting MD [address] [place] [address] Social History Tobacco Use Types Packs/Day Years [...] 05/01/2025 3:00 PM EST Office Visit [facility] MEDICAL [address] [place] [address] Tessy Painting MD [address] [place] [address] 05/04/2025 12:00 PM EST Office Visit [facility] DENTAL [address] [place] [address] Maria G Thapa documented as of this encounter Procedures Procedure Name Priority Date/Time Associated Diagnosis Comments MRI CERVICAL SPINE WO CONTRAST Routine 03/05/2025 9:40 AM EDT documented in this encounter Results * MRI CERVICAL SPINE WO CONTRAST (03/05/2025 9:40 AM EDT) Anatomical Region Laterality Modality Magnetic Resonan ce us Tessy Painting MD IMG MRI PROCEDURES Final Resul t documented in this encounter Visit Diagnoses Not on filedocumented in this encounter Care Teams Field Assistant Relationship Specialty Start Date End Date Tessy Painting MD [address] [place] [address] PCP - General Family Medicine 06/08/24 Miryam Oconnell 04/04/25 Raffi Crespo 04/16/25 04/16/25 documented as of this encounter
--- OUTSIDE RECORDS SUMMARY | 2025-04-21 09:14 | XMS_ITS | Encounter Summary ---
Author Organization [employer] Address 75 [facility] 7t [place] [address] Care Team Providers Care Regional Maintenance Manager Name Role Phone Corazon Shelton PA-C Primary Care Provider Tessy Dawson MD Primary Care Provider [phone] Miryam Oconnell Unavailable Raffi Crespo Unavailable Encounter Details Date Type Department Care Team (Late Contact Info) Description 06/03/2022 Orders Only [address] [address] Aliza Alvarez LPN Social History Tobacco Use [...] Department Care Team (Late Contact Info) Description 05/01/2025 3:00 PM EST Office Visit [address] [address] Tessy Painting MD [address] [place] [address] 05/04/2025 12:00 PM EST Office Visit [facility] D[facility] [address] [place] [address] Maria G Thapa documented as of this encounter Visit Diagnoses Not on filedocumented in this encounter Care Teams Regional Maintenance Manager Relationship Specialty Start Date End Date Corazon Shelton PA-C PCP - General Family Medicine 05/02/22 06/07/24 Tessy Painting MD [address] [place] [address] PCP - General Family Medicine 06/08/24 Miryam Oconnell 04/04/25 Raffi Crespo 04/16/25 04/16/25 documented as of this encounter
--- OUTSIDE RECORDS SUMMARY | 2025-04-21 09:14 | XMS_ITS | Encounter Summary ---
Author Organization [employer] Address 75 [facility] 7t [place] [address] Care Team Providers Care Music Internship Name Role Phone Tessy Painting MD Primary Care Provider [phone] Miryam Oconnell Unavailable Rafif Crespo Unavailable Encounter Details Date Type Department Care Team (Late st Contact Info) Description 04/16/2025 Results Follow-Up [facility] MED[facility] [address] [place] [address] Tessy Painting MD [address] [place] [address] CBC auto differential Social History Tobacco Use Types Packs/Day Years [...] Description 05/01/2025 3:00 PM EST Office Visit [facility] MEDICAL [address] [place] [address] Tessy Painting MD [address] [place] [address] 05/04/2025 12:00 PM EST Office Visit [facility] DENTAL [address] [place] [address] Maria G Thapa documented as of this encounter Visit Diagnoses Not on filedocumented in this encounter Care Teams Music Internship Relationship Specialty Start Date End Date Tessy Painting MD [address] [place] [address] PCP - General Family Medicine 06/08/24 Miryam Oconnell 04/04/25 Raffi Crespo 04/16/25 04/16/25 documented as of this encounter
--- OUTSIDE RECORDS SUMMARY | 2025-04-21 09:14 | XMS_ITS | Encounter Summary ---
Author Organization [employer] Address 75 [facility] 7t [place] [address] Care Team Providers Care Tag Writer Name Role Phone Corazon Shelton PA-C Primary Care Provider Tessy Dawson MD Primary Care Provider [phone] Miryam Oconnell Unavailable Raffi Crespo Unavailable Encounter [...] Description 05/01/2025 3:00 PM EST Office Visit [facility] MEDICAL [address] [place] [address] Tessy Painting MD [address] [place] [address] 05/04/2025 12:00 PM EST Office Visit [facility] DENTAL [address] [place] [address] Maria G Thapa documented as of this encounter Visit Diagnoses Not on filedocumented in this encounter Care Teams Tag Writer Relationship Specialty Start Date End Date Corazon Shelton PA-C PCP - General Family Medicine 05/02/22 06/07/24 Tessy Painting MD [address] [place] [address] PCP - General Family Medicine 06/08/24 Miryam Oconnell 04/04/25 Raffi Crespo 04/16/25 04/16/25 documented as of this encounter
--- OUTSIDE RECORDS SUMMARY | 2025-04-21 09:14 | XMS_ITS | Encounter Summary ---
Author Organization [employer] Address 75 [facility] 7t [place] [address] Care Team Providers Care Strap Stitcher Name Role Phone Tessy Painting MD Primary Care Provider [phone] Miryam Oconnell Unavailable Raffi Crespo Unavailable Reason for Visit * Reason Comments c3 care management Encounter Details Date Type Department Care Team ([facility] st Contact Info) Description 04/16/2025 Patient Outreach [facility] (C3) Department [address] [facility] [address] [place] [address] Raffi Crespo c3 care management Social History Tobacco Use Types Packs/Day Years [...] Progress Notes * Raffi Crespo - 04/16/2025 11:44 AM EDT [facility]. Evs C3 eligible documented in this encounter Plan of Treatment Upcoming Encounters Date Type Department Care Team (Late st Contact Info) Description 05/01/2025 3:00 PM EST Office Visit [facility] MEDICAL [address] [place] [address] Tessy Painting MD [address] [place] [address] 05/04/2025 12:00 PM EST Office Visit [facility] DENTAL [address] [place] [address] Maria G Thapa documented as of this encounter Visit Diagnoses Not on filedocumented in this encounter Care Teams Strap Stitcher Relationship Specialty Start Date End Date Tessy Painting MD [address] [place] [address] PCP - General Family Medicine 06/08/24 Miryam Oconnell 04/04/25 Raffi Crespo 04/16/25 04/16/25 documented as of this encounter
--- OUTSIDE RECORDS SUMMARY | 2025-04-21 09:14 | XMS_ITS | Encounter Summary ---
Author Organization [employer] Address 75 [facility] 7t [place] [address] Care Team Providers Care Bin Filler Name Role Phone Corazon Shelton PA-C Primary Care Provider Tessy Dawson MD Primary Care Provider [phone] Miryam Oconnell Unavailable Raffi Crespo Unavailable Reason for Visit * Reason Onset Date Comments virtual delivery 04/06/2024 Encounter Details Date Type Department Care Team (Late st Contact Info) Description 04/06/2024 Telephone [facility] MEDICAL [address] [place] [address] Corazon Shelton PA-C virtual delivery Social History [...] - 04/06/2024 10:28 AM EDT Cici from [employer] VM to schedule a virtual delivery with nursing documented in this encounter Plan of Treatment Upcoming Encounters Date Type Department Care Team (Late st Contact Info) Description 05/01/2025 3:00 PM EST Office Visit [facility] MEDICAL [address] [place] [address] Tessy Painting MD 70 [place] [address] 05/04/2025 12:00 PM EST Office Visit [facility] DENTAL [address] [place] [address] Maria G Thapa documented as of this encounter Visit Diagnoses Not on filedocumented in this encounter Care Teams Bin Filler Relationship Specialty Start Date End Date Corazon Shelton PA-C PCP - General Family Medicine 05/02/22 06/07/24 Tessy Painting MD [address] [place] [address] PCP - General Family Medicine 06/08/24 Miryam Oconnell 04/04/25 Raffi Crespo 04/16/25 04/16/25 documented as of this encounter
--- OUTSIDE RECORDS SUMMARY | 2025-04-21 09:14 | XMS_ITS | Encounter Summary ---
Author Organization [employer] Address 75 [facility] 7t [place] [address] Care Team Providers Care Activities Attendant Name Role Phone Tessy Painting MD Primary Care Provider [phone] Miryam Oconnell Unavailable Raffi Crespo Unavailable Encounter Details Date Type Department Care Team (Late st Contact Info) Description 04/16/2025 Orders Only [facility] [address] [place], [place] [phone] Tessy Painting MD [address] [place] [address] Social History Tobacco Use Types Packs/Day Years [...] Description 05/01/2025 3:00 PM EST Office Visit [facility] MEDICAL [address] [place] [address] Tessy Painting MD [address] [place] [address] 05/04/2025 12:00 PM EST Office Visit [facility] DENTAL [address] [place] [address] Maria G Thapa documented as of this encounter Procedures Procedure Name Priority Date/Time Associated Diagnosis Comments CBC WITH AUTO DIFFERENTIAL Routine 04/13/2025 11:45 AM EDT documented in this encounter Results * CBC auto differential (04/13/2025 11:45 AM EDT) Blood Venous blood specimen / Unknown Tessy Painting MD LAB BLOOD ORDERABLES Final Res ult documented in this encounter Visit Diagnoses Not on filedocumented in this encounter Care Teams Activities Attendant Relationship Specialty Start Date End Date Tessy Painting MD [address] [place] [address] PCP - General Family Medicine 06/08/24 Miryam Oconnell 04/04/25 Raffi Crespo 04/16/25 04/16/25 documented as of this encounter
--- OUTSIDE RECORDS SUMMARY | 2025-04-21 09:14 | XMS_ITS | Encounter Summary ---
Author Organization [employer] Address 75 [facility] 7t [place] [address] Care Team Providers Care Buggy Operator Name Role Phone Corazon Shelton PA-C Primary Care Provider Tessy Dawson MD Primary Care Provider [phone] Miryam Oconnell Unavailable Raffi Crespo Unavailable Encounter Details Date Type Department Care Team (Late st Contact Info) Description 08/07/2022 Orders Only [address] [address] Corazon Shelton PA-C Social History Tobacco Use [...] Description 05/01/2025 3:00 PM EST Office Visit [address] [address] Tessy Painting MD 70 [place] [address] 05/04/2025 12:00 PM EST Office Visit [facility] DENTAL [address] [place] [address] Maria G Thapa documented as of this encounter Visit Diagnoses Not on filedocumented in this encounter Care Teams Buggy Operator Relationship Specialty Start Date End Date Corazon Shelton PA-C PCP - General Family Medicine 05/02/22 06/07/24 Tessy Painting MD [address] [place] [address] PCP - General Family Medicine 06/08/24 Miryam Oconnell 04/04/25 Raffi Crespo 04/16/25 04/16/25 documented as of this encounter
--- OUTSIDE RECORDS SUMMARY | 2025-04-21 09:14 | XMS_ITS | Encounter Summary ---
Author Organization [employer] Address 75 [facility] 7t [place] [address] Care Team Providers Care Fig Washer Name Role Phone Corazon Shelton PA-C Primary Care Provider Tessy Dawson MD Primary Care Provider [phone] Miryam Oconnell Unavailable Raffi Crespo Unavailable Reason for Visit * Reason Onset Date Comments Vitral Delivery 11/19/2023 Encounter Details Date Type Department Care Team (Late st Contact Info) Description 11/19/2023 Telephone [facility] MEDICAL [address] [place] [address] Corazon Shelton PA-C Vitral Delivery Social History [...] EDT Pts vivitrol will be delivered to [facility] 12/02/23 * Telephone Encounter - Varsha Magana - 11/19/2023 3:50 PM EDT [facility] LMOM asking to speak to nursing about viral delivery documented in this encounter Plan of Treatment Upcoming Encounters Date Type Department Care Team (Late st Contact Info) Description 05/01/2025 3:00 PM EST Office Visit [facility] MEDICAL [address] [place] [address] Tessy Painting MD 70 [place] [address] 05/04/2025 12:00 PM EST Office Visit [facility] DENTAL [address] [place] [address] Maria G Thapa documented as of this encounter Visit Diagnoses Not on filedocumented in this encounter Care Teams Fig Washer Relationship Specialty Start Date End Date Corazon Shelton PA-C PCP - General Family Medicine 05/02/22 06/07/24 Tessy Painting MD [address] [place] [address] PCP - General Family Medicine 06/08/24 Miryam Oconnell 04/04/25 Raffi Crespo 04/16/25 04/16/25 documented as of this encounter
--- OUTSIDE RECORDS SUMMARY | 2025-04-21 09:14 | XMS_ITS | Encounter Summary ---
Author Organization [employer] Address 75 [facility] 7t [place] [address] Care Team Providers Care Crown Buffer Name Role Phone Tessy Painting MD Primary Care Provider [phone] Miryam Oconnell Unavailable Raffi Crespo Unavailable Reason for Referral * Imaging (STAT) - Closed Specialty Diagnoses / Procedures Referred By Contac t Referred To Contact Radiology Diagnoses Abdominal pain, RLQ (right lower quadrant) History of colectomy Procedures CT Abdomen Pelvis w/ Contrast Tessy Painting MD [address] [place] [address] Phone: tel: fax: [address] Phone: tel: fax: Referral ID Status Reason Start Date Expiration Date Visits Re quested Visits Authorized [id number] Closed 04/11/2025 04/11/2026 1 1 Reason for Visit * Reason Onset Date Comments Flank Pain 04/09/2025 Referral 04/09/2025 Call Back Request 04/09/2025 Encounter Details Date Type Department Care Team (Late st Contact Info) Description 04/09/2025 Telephone [facility] MEDICAL [address] [place] [address] Tessy Painting MD [address] [place] [address] Flank Pain; Referral; Call Back Request Social History Tobacco Use Types Packs/Day Years [...] encounter Miscellaneous Notes * Telephone Encounter - Beatriz Venegas LPN - 04/17/2025 1:57 PM EDT Appointment is scheduled 05/01. * Telephone Encounter - Jazmyn Salgado LPN - 04/17/2025 11:24 AM EDT Spoke with pt. He continues to have pain in his left abdomen and his right back. He states the pain is behind his rib cage like something is inflamed and pushing out . He went to the [place] ED on 04/15. He had a CT of his abdomen with contrast. They told him they did not see any reason for his pain. He has the CT that Dr Painting ordered scheduled for 04/21. He is wondering if Dr Painting wants him to have this done? TE to HIM. Please obtain ED report. * Telephone Encounter - Cinthia Ruff - 04/17/2025 10:08 AM EDT Patient called stating he is still having the pain in his stomach and in his back below his ribs. Patient states he has a CT scan coming up and he is wondering if HIMANSHU wants him to get another one done. Patient states he would like a call back. * Telephone Encounter - Beatriz Venegas LPN - 04/16/2025 2:54 PM EDT To provider for review * Telephone Encounter - Cinthia Ruff - 04/13/2025 4:54 PM EDT Patient states he can't wait a week until his CT scan so he plans to go to [facility] emergency room today(04/13/25) in 20 minutes (5:15 pm). TE sent to nursing TE sent to medical records to obtain hospital records when available * Telephone Encounter - Ree Desai LPN - 04/12/2025 2:47 PM EDT Patient returned call. Provider message given. Patient will have labs drawn on 04/13/25 at [facility] as he has a dental appointment there. * Telephone Encounter - Tessy Montelongo - 04/12/2025 11:42 AM EDT When patient calls back please advise him we can not schedule the CT until we have the result of his labs. * Telephone Encounter - Ree Desai LPN - 04/12/2025 9:52 AM EDT Call placed to patient. LMOM to CB. * Telephone Encounter - Tessy Painting MD - 04/11/2025 4:28 PM EDT A GI referral would take weeks to months. This does not seem like the appropriate route. I ordered a stat CT with contrast. I also ordered labs. Routing to nursing and referrals * Telephone Encounter - Brittney Milton - 04/11/2025 2:21 PM EDT Patient called Patient would like a call back from nursing and an update on the status of the referral * Telephone Encounter - Jazmyn Salgado LPN - 04/11/2025 8:40 AM EDT Spoke with pt. He has been having pain in his lower right abdomen for the past 7-8 days. At first he thought it was a pulled muscle. The pain radiates around to his back. He is concerned it may be a liver or kidneyissue. The area is tender when he presses on it. He also reports bloating, nausea and diarrhea. He denies blood in his stool. He did have an abscess on his colon 3 years ago. He had surgery and had a colostomy for 6 months. He called his surgeon Dr Shekhar Frank at [facility] and they told him if he gets a referral from his PCP they will see him right away. Pt reports the pain is not getting worse. He will go to the ED if it does get worse. TE to HIMANSHU for referral. * Telephone Encounter - Brittney Milton - 04/10/2025 3:40 PM EDT Patient called Patient still having rib and hip pain right side started 7-8 days ago Please call to evaluate the patient as this is the 3rd time he has called to see if he can just geta referral and it is unknown if this will happen or if the patient should be advised to seek er treatment * Telephone Encounter - Brittney Milton - 04/09/2025 8:50 AM EDT Patient called Patient has right side back pain in between the hip and rib Patient reports pressure as well Pain and pressure has been for the last week Patient is very concerned about this pain Patient can see the following provider christine if he gets a referral (per call to the GI office this morning) Dr Frank (GI provider) [facility] documented in this encounter Plan of Treatment Upcoming Encounters Date Type Department Care Team (Late st Contact Info) Description 05/01/2025 3:00 PM EST Office Visit [facility] MEDICAL [address] [place] [address] Tessy Painting MD [address] [place] [address] 05/04/2025 12:00 PM EST Office Visit [facility] DENTAL [address] [place] [address] Maria G Thapa documented as of this encounter Procedures Procedure Name Priority Date/Time Associated Diagnosis Comments CBC WITH AUTO DIFFERENTIAL Routine 04/13/2025 11:55 AM EDT Abdominal pain, RLQ (right lower quadrant) BASIC METABOLIC PANEL Routine 04/13/2025 11:55 AM EDT Abdominal pain, RLQ (right lower quadrant) CT ABDOMEN PELVIS W CONTRAST STAT 04/13/2025 Abdominal pain, RLQ (right lower quadrant) History of colectomy documented in this encounter Results * CBC auto differential [[id number]] (04/13/2025 11:55 AM EDT) White Blood Cell Count 10.1 3.4 - 10.8 x10E3/uL [facility] Red Blood Cell Count 5.25 4.14 - 5.80 x10E6/uL [facility] Hemoglobin 17.0 13.0 - 17.7 g/dL [facility] Hematocrit 50.0 37.5 - 51.0 % [facility] MCV 95 79 - 97 fL [facility] MCH 32.4 26.6 - 33.0 pg [facility] MCHC 34.0 31.5 - 35.7 g/dL [facility] RDW 13.8 11.6 - 15.4 % [facility] Platelet Count 388 150 - 450 x10E3/uL [facility] Neutrophils 64 Not Estab. % [facility] Lymphocytes 23 Not Estab. % [facility] Monocytes 8 Not Estab. % [facility] Eosinophils 4 Not Estab. % [facility] Basophils 1 Not Estab. % [facility] Absolute Neutrophils 6.6 1.4 - 7.0 x10E3/uL [facility] Absolute Lymphocytes 2.3 0.7 - 3.1 x10E3/uL [facility] Absolute Monocytes 0.8 0.1 - 0.9 x10E3/uL [facility] Absolute Eosinophils 0.4 0.0 - 0.4 x10E3/uL [facility] Absolute Basophils 0.1 0.0 - 0.2 x10E3/uL [facility] Immature Granulocytes 0 Not Estab. % [facility] Immature Grans (Abs) 0.0 0.0 - 0.1 x10E3/uL [facility] Blood Venous blood specimen / Unknown 04/13/2025 11:55 AM EDT 04/13/2025 Narrative Resulting Agency Comment Performed at: 01 - [facility] [address] [place], [place] [id number] Lip Of Shank Cutter: Dilcia Cervantes MD, Phone: [phone] us Tessy Painting MD LAB BLOOD ORDERABLES Final Res ult [facility] [address] [place] [address] * Basic Metabolic Panel [id number] (04/13/2025 11:55 AM EDT) Glucose 80 70 - 99 mg/dL [facility] Urea Nitrogen (BUN) 8 6 - 24 mg/dL [facility] Creatinine, Serum 0.90 0.76 - 1.27 mg/dL [facility] eGFR 98 >59 mL/min/1.7 3 [facility] BUN/Creatinine Ratio 9 9 - 20 [facility] Sodium 140 134 - 144 mmol/L [facility] Potassium 4.3 3.5 - 5.2 mmol/L [facility] Chloride 102 96 - 106 mmol/L [facility] Carbon Dioxide 20 20 - 29 mmol/L [facility] Calcium 9.6 8.7 - 10.2 mg/dL [facility] Blood Venous blood specimen / Unknown 04/13/2025 11:55 AM EDT 04/13/2025 Narrative Resulting Agency Comment Performed at: 01 - [facility] [address] [place], [place] [id number] Lip Of Shank Cutter: Dilcia Cervantes MD, Phone: [phone] us Tessy Painting MD LAB BLOOD ORDERABLES Final Res ult [facility] 1 [facility] [address] [place] [address] * CT Abdomen Pelvis w/ Contrast (04/13/2025) Anatomical Region Laterality Modality Body, Pelvis, Abdomen Computed T omography us Tessy Painting MD IMG CT PROCEDURES Final Result documented in this encounter Visit Diagnoses Diagnosis Abdominal pain, RLQ (right lower quadrant)- Primary Abdominal pain, right lower quadrant History of colectomy documented in this encounter Care Teams Crown Buffer Relationship Specialty Start Date End Date Tessy Painting MD [address] [place] [address] PCP - General Family Medicine 06/08/24 Miryam Oconnell 04/04/25 Raffi Crespo 04/16/25 04/16/25 documented as of this encounter
== END 2025-04-21 09:13 | disposition home or self-care (01) ==
LOC: HO.CT 09:12
PROVIDERS: PCP Family Medicine; Visit Provider Physician Assistant
DX: M54.9 Dorsalgia, unspecified (principal); Z98.1 Arthrodesis status
CPT/HCPCS: 72131

== ENCOUNTER → 2025-04-21 09:15 | Outpatient (BNV) | payer MEDICAID, SELFPAY | PROVIDERS: PCP Family Medicine; Visit Provider Radiology Diagnostic Radiology | DX: M47.816 Spondylosis without myelopathy or radiculopathy, lumbar region (principal) | CPT/HCPCS: 72131 ==

== ENCOUNTER 2025-04-30 11:15 | Outpatient (AMB) | payer MEDICAID, SELFPAY ==
--- NOTE | 2025-04-30 11:52 | A.SPINEOV_ITS ---
Intake Visit Reasons: CT & MRI f/u Intake Note: Mr. Gutierrez is here today to F/u on CT & MRI. Erecting Engineer Required: No Allergies morphine Allergy (Severe, Verified 04/30/25 11:53) Anaphylaxis Assessment & Plan Assessment & Plan (1) Back pain: Code(s): M54.9 - Dorsalgia, unspecified Category: Medical (2) Cervical myelopathy: Code(s): G95.9 - Disease of spinal cord, unspecified Category: Medical Plan Mr Gutierrez is here in follow-up. His CT scan shows extensive degenerative disc disease at L1-2 above his multilevel fusion. There are no interbody cages. It looks like there is some degree of auto fusion along the segments from L2-S1. Unfortunately we still do not have the operative notes for the lumbar spine. He thought they are at [facility], but now thinks they might be at [place]. We will double check again and see if we can find them. He was told at the time of surgery that things were very complicated and based on his CT scans I would agree that the hardware it looks like it was adapted at L2-3 to the lower segments with dominoes, but there also rods which do not appear to be into pedicle screws Tulip heads at the lower down levels. I am not sure if this was planned this way, or if there is some sort of trauma that caused this to happen. Once we have the operative notes I will review everything with Dr. Suarez and get back to him again. With regard to his cervical MRI, he had much more postsurgical changes then he described at his initial visit. It looks like he has fusion from C3-C7. C2-3 does have some degeneration and mild kyphosis associated with the. There is no cord compression. I think we should just leave his neck alone for now as it is not all that bothersome. I will see him back once we have the operative notes for the lumbar spine. Total amount of time spent in this visit was 20 minutes in discussion of symptoms, cervical MRI and lumbar CT imaging results and subsequent plan of care Arron Suarez MD,PhD [facility] Coding Level of Care Code Est Pt Level 3 (09529) Diagnoses Back pain M54.9 Cervical myelopathy G95.9
--- OUTSIDE RECORDS SUMMARY | 2025-04-30 13:33 | XMS_ITS | Encounter Summary ---
Author Organization [employer] Address 75 [facility] 7t [place] [address] Care Team Providers Care Ghost Writer Name Role Phone Corazon Shelton PA-C Primary Care Provider Tessy Dawson MD Primary Care Provider [phone] Miryam Oconnell Unavailable Raffi Crespo Unavailable Encounter Details Date Type Department Care Team (Late st Contact Info) Description 08/07/2022 Orders Only [address] [address] Corazon Shelton PA-C Social History Tobacco Use [...] Description 05/01/2025 3:00 PM EST Office Visit [address] [address] Tessy Painting MD [address] [place] [address] 05/04/2025 12:00 PM EST Office Visit [facility] DENTAL [address] [place] [address] Maria G Thapa documented as of this encounter Visit Diagnoses Not on filedocumented in this encounter Care Teams Ghost Writer Relationship Specialty Start Date End Date Corazon hSelton PA-C PCP - General Family Medicine 05/02/22 06/07/24 Tessy Painting MD [address] [place] [address] PCP - General Family Medicine 06/08/24 Miryam Oconnell 04/04/25 Raffi Crespo 04/16/25 04/16/25 documented as of this encounter
--- OUTSIDE RECORDS SUMMARY | 2025-04-30 13:33 | XMS_ITS | Encounter Summary ---
Author Organization [employer] Address [address] [facility] 7t [place] [address] Care Team Providers Care Senior Environmental Engineer Name Role Phone Corazon Shelton PA-C Primary Care Provider Tessy Dawson MD Primary Care Provider [phone] Miryam Oconnell Unavailable Raffi Crespo Unavailable Reason for Visit * Reason Onset Date Comments Vitral Delivery 11/19/2023 Encounter Details Date Type Department Care Team (Late st Contact Info) Description 11/19/2023 Telephone [facility] MEDICAL [address] [place] [address] Corazon Shelton PA-C Vitral Delivery Social History [...] EDT Pts vivitrol will be delivered to [facility] 12/02/23 * Telephone Encounter - Varsha Magana - 11/19/2023 3:50 PM EDT [facility] LMOM asking to speak to nursing about viral delivery documented in this encounter Plan of Treatment Upcoming Encounters Date Type Department Care Team (Late st Contact Info) Description 05/01/2025 3:00 PM EST Office Visit [facility] MEDICAL [address] [place] [address] Tessy Painting MD [address] [place] [address] 05/04/2025 12:00 PM EST Office Visit [facility] DENTAL [address] [place] [address] Maria G Thapa documented as of this encounter Visit Diagnoses Not on filedocumented in this encounter Care Teams Senior Environmental Engineer Relationship Specialty Start Date End Date Corazon Shelton PA-C PCP - General Family Medicine 05/02/22 06/07/24 Tessy Painting MD [address] [place] [address] PCP - General Family Medicine 06/08/24 Miryam Oconnell 04/04/25 Raffi Crespo 04/16/25 04/16/25 documented as of this encounter
--- OUTSIDE RECORDS SUMMARY | 2025-04-30 13:33 | XMS_ITS | Encounter Summary ---
Author Organization [employer] Address [address] [facility] 7t [place] [address] Care Team Providers Care Loft Worker Name Role Phone Tessy Painting MD Primary Care Provider [phone] Miryam Oconnell Unavailable Encounter Details Date Type Department Care Team (Late st Contact Info) Description 04/23/2025 Orders Only [facility] [address] [place] [address] Tessy Painting MD [address] [place] [address] Social History Tobacco Use Types Packs/Day Years [...] Office Visit [facility] MEDICAL [address] [place] [address] Tessy Painting MD [address] [place] [address] 05/04/2025 12:00 PM EST Office Visit [facility] DENTAL [address] [place] [address] Maria G Thapa documented as of this encounter Procedures Procedure Name Priority Date/Time Associated Diagnosis Comments CT LUMBAR SPINE WO CONTRAST Routine 04/21/2025 2:14 PM EDT documented in this encounter Results * CT Lumbar Spine w/o Contrast (04/21/2025 2:14 PM EDT) Anatomical Region Laterality Modality Spine, L-spine Computed Tomogra phy us Tessy Painting MD IMG CT PROCEDURES Final Result documented in this encounter Visit Diagnoses Not on filedocumented in this encounter Care Teams Loft Worker Relationship Specialty Start Date End Date Tessy Painting MD [address] [facility] [place] [address] PCP - General Family Medicine 06/08/24 Miryam Oconnell 04/04/25 documented as of this encounter
--- OUTSIDE RECORDS SUMMARY | 2025-04-30 13:33 | XMS_ITS | Encounter Summary ---
Author Organization [employer] Address 75 [facility] 7t [place] [address] Care Team Providers Care Child Care Group Leader Name Role Phone Tessy Painting MD Primary Care Provider [phone] Miryam Oconnell Unavailable Raffi Crespo Unavailable Encounter Details Date Type Department Care Team (Late st Contact Info) Description 04/16/2025 Results Follow-Up [facility] MED[facility] 70 [place] [address] Tessy Painting MD [address] [place] [address] CT Abdomen Pelvis w/ Contrast Social History [...] the past 12 months, has t he [employer], gas, oil or water company threatened to [...] Office Visit [facility] MEDICAL 58 [place] [address] Tessy Painting MD 70 [place] [address] 05/04/2025 12:00 PM EST Office Visit [facility] DENTAL 58 [facility] [place] [address] Maria G Thapa documented as of this encounter Visit Diagnoses Not on filedocumented in this encounter Care Teams Child Care Group Leader Relationship Specialty Start Date End Date Tessy Painting MD [address] [place] [address] PCP - General Family Medicine 06/08/24 Miryam Oconnell 04/04/25 Raffi Crespo 04/16/25 04/16/25 documented as of this encounter
--- OUTSIDE RECORDS SUMMARY | 2025-04-30 13:33 | XMS_ITS | Encounter Summary ---
Author Organization [employer] Address 75 [facility] 7t [place] [address] Care Team Providers Care Machining Engineer Name Role Phone Tessy Painting MD Primary Care Provider [phone] Miryam Oconnell Encounter Details Date Type Department Care Team (Late st Contact Info) Description 04/30/2025 Patient Outreach [facility] (C3) Department [address] [phone] Miryam Oconnell Social History Tobacco Use Types Packs/Day Years [...] as of this encounter Progress Notes * Miryam Oconnell - 04/30/2025 10:10 AM EST MBR asked to be called back late in the pm next week documented in this encounter Plan of Treatment Upcoming Encounters Date Type Department Care Team (Late st Contact Info) Description 05/01/2025 3:00 PM EST Office Visit [place] [facility] MEDICAL 58 [place] [address] Tessy Painting MD 70 [place] [address] 05/04/2025 12:00 PM EST Office Visit [facility] DENTAL [address] [place] [address] Maria G Thapa documented as of this encounter Visit Diagnoses Not on filedocumented in this encounter Care Teams Machining Engineer Relationship Specialty Start Date End Date Tessy Painting MD [address] [place] [address] PCP - General Family Medicine 06/08/24 Miryam Oconnell 04/04/25 documented as of this encounter
--- OUTSIDE RECORDS SUMMARY | 2025-04-30 13:33 | XMS_ITS | Encounter Summary ---
Author Organization [employer] Address 75 [facility] 7t [place] [address] Care Team Providers Care Toolroom Clerk Name Role Phone Tessy Painting MD Primary Care Provider [phone] Miryam Oconnell Unavailable Raffi Crespo Unavailable Encounter Details Date Type Department Care Team (Late st Contact Info) Description 04/16/2025 Orders Only [facility] 58 [place], [place] [phone] Tessy Painting MD 70 [place] [address] Social History Tobacco Use Types Packs/Day Years [...] Description 05/01/2025 3:00 PM EST Office Visit [facility] MEDICAL 58 [place] [address] Tessy Painting MD 70 [place] [address] 05/04/2025 12:00 PM EST Office Visit [facility] DENTAL 58 [place] [address] Maria G Thapa documented as of this [...] on filedocumented in this encounter Care Teams Toolroom Clerk Relationship Specialty Start Date End Date Tessy Painting MD [address] [place] [address] PCP - General Family Medicine 06/08/24 Miryam Oconnell 04/04/25 Raffi Crespo 04/16/25 04/16/25 documented as of this encounter
--- OUTSIDE RECORDS SUMMARY | 2025-04-30 13:33 | XMS_ITS | Encounter Summary ---
Author Organization [employer] Address 75 [facility] 7t [place] [address] Care Team Providers Care Skiving Machine Operator Name Role Phone Tessy Painting MD Primary Care Provider [phone] Miryam Oconnell Unavailable Raffi Crespo Unavailable Encounter Details Date Type Department Care Team (Late st Contact Info) Description 02/20/2025 Orders Only [facility] 58 [place], [place] [phone] Tessy Painting MD 70 [place] [address] Social History Tobacco Use Types Packs/Day Years [...] Description 05/01/2025 3:00 PM EST Office Visit [facility] MEDICAL 58 [place] [address] Tessy Painting MD 70 [place] [address] 05/04/2025 12:00 PM EST Office Visit [facility] DENTAL 58 [place] [address] Maria G Thapa documented as of this [...] on filedocumented in this encounter Care Teams Skiving Machine Operator Relationship Specialty Start Date End Date Tessy Painting MD [address] [place] [address] PCP - General Family Medicine 06/08/24 Miryam Oconnell 04/04/25 Raffi Crespo 04/16/25 04/16/25 documented as of this encounter
--- OUTSIDE RECORDS SUMMARY | 2025-04-30 13:33 | XMS_ITS | Clinical Summary ---
Author Organization [employer] Address 75 [facility] 7t [place] [address] Care Team Providers Care Patient Access Name Role Phone Tessy Painting MD Primary Care Provider Miryam Oconnell Unavailable Allergies Active Allergy Reactions [...] Date Alcoholic 08/07/2022 01/04/2025 Bipolar 1 disorder ([facility] 08/07/2022 01/04/2025 Encounters Date Type Department Care Team Description 04/30/2025 Patient Outreach [facility] () Department [address] [place] [phone] Miryam Oconnell 04/24/2025 Orders Only [facility] 58 [place] [address] Tessy Painting MD 04/23/2025 Telephone [facility] MEDICAL 73 [place] [address] Tessy Painting MD Results 04/23/2025 Orders Only [facility] 58 [place] [address] Tessy Painting MD 04/20/2025 12:20 PM EDT Office Visit [facility] DENTAL 73 [place] [address] Zac Tian Jr., DMD 04/18/2025 [facility] Department [address] [place] [address] [phone] Sidra Manning, RN [facility]3 Care Managment (2nd outreach) 04/18/2025 Patient Outreach [facility] Department [address] [place] [address] [phone] Sidra Manning, RN 04/16/2025 Patient Outreach [facility] Department [address] [place] [phone] Raffi Crespo 04/16/2025 Results Follow-Up [facility] 70 [place] [address] Tessy Painting MD CBC auto differential 04/16/2025 Results Follow-Up [facility] 70 [place] [address] Abdomen Pelvis w/ Contrast 04/16/[address] [facility] Information Management 58 [place] [address] Tessy Painting MD 04/16/2025 Patient Outreach [facility] () Department [address] [place], [place] [phone] Raffi Crespo care management 04/13/2025 12:20 PM EDT Office Visit [facility] DENTAL [address] [place] [address] Zac Tian Jr., DMD 04/09/2025 Telephone [facility] MEDICAL [address] [place] [address] Tessy Painting MD Flank Pain; Referral; Call Back Request 04/05/2025 Refill [facility] 73 [place] [address] Tessy Painting MD Other chronic postprocedural pain; Failed back surgical syndrome 04/05/2025 Patient Outreach [facility] () Department [address] [place], [place] [address] [phone] Miryam Oconnell 04/04/2025 Patient Outreach [facility] () Department [address] [place] [phone] Jacqueline Oconnellelyn 04/03/2025 Refill [facility] 73 [place] [address] Tessy Painting MD Psychophysiological insomnia; Chronic pain syndrome 04/03/2025 Refill [facility] MEDICAL [address] [place] [address] Tessy Painting MD Chronic pain syndrome 03/30/2025 12:20 PM EDT Office Visit [facility] DENTAL [address] [place] [address] Zac Tian Jr., DMD 03/21/[address] [address] Tessy Painting MD Med Refill 03/14/[address] [address] Tessy Painting MD medication request 03/13/2025 2:40 PM EDT Office Visit [address] [address] Tessy Painting MD Abscess of right hand (Primary Dx); Immunization due; Puncture wound of right wrist with complication, sequela 03/09/[address] [address] Tessy Painting MD Other chronic postprocedural pain; Failed back surgical syndrome 03/08/2025 11:00 AM EDT Office Visit [facility] DENTAL [address] [place] [address] Farnaz Merida LLD 03/07/2025 11:50 AM EDT Office Visit [facility] DENTAL [address] [place] [address] Zac Tian Jr., DMD 03/06/[address] [address] Tessy Painting MD Chronic pain syndrome 03/06/2025 Orders Only [facility] [address] [place] [address] Tessy Painting MD 02/28/[address] [address] Tessy Painting MD PT1 02/26/2025 3:00 PM EDT Office Visit [facility] DENTAL 58 [place] [address] Kathrin Sales DDS 02/20/2025 Orders Only [facility] 58 [place] [address] Tessy Painting MD 02/13/[address] [address] Tessy Painting MD Other chronic postprocedural pain; Failed back surgical syndrome 02/13/[address] [address] Tessy Painting MD 02/07/[address] [address] Tessy Painting MD MRI disc from Last 3 Months Immunizations Immunization Administration [...] Description 05/01/2025 3:00 PM EST Office Visit [facility] MEDICAL 58 [place] [address] Tessy Painting MD 70 [place] [address] 05/04/2025 12:00 PM EST Office Visit [facility] DENTAL 58 [place] [address] Maria G Thapa Health Maintenance Due Date [...] 08/17/2023, 02/24/2022, Additional history exists COVID-19 Vaccine (2 - season) 2025 10/25/2020 Influenza Vaccine (#1) [...] 03/13/2025 Dental X-Ray: Full Mouth 08/18/2026 08/17/2023, 1107/2017 [...] WO CONTRAST Routine 04/21/2025 2:14 PM EDT CASE PRESENTATION, DETAILED AND EXTENSIVE TREATMENT PLANNING Routine 04/20/2025 12:20 PM EDT 21 B(V) RESIN-BASED COMPOSITE - 1 SURF, POSTERIOR Routine 04/20/2025 12:20 PM EDT 18 B(V) RESIN-BASED COMPOSITE - 1 SURF, POSTERIOR Routine 04/20/2025 12:20 PM EDT 12 DO RESIN-BASED COMPOSITE - 2 SURF, POSTERIOR Routine 04/20/2025 12:[address] ABDOMEN PELVIS W CONTRAST Routine 04/19/2025 10:47 AM EDT CASE PRESENTATION, DETAILED AND EXTENSIVE [...] Recently Relevant to Health Maintenance Results * CT Lumbar Spine w/o Contrast (04/21/2025 2:14 PM EDT) Anatomical Region Laterality Modality Spine, L-spine Computed Tomogra phy us Tessy Painting MD [facility] CT PROCEDURES Final Result * CT Abdomen Pelvis w/ Contrast (04/19/2025 10:47 AM EDT) Only the most recent of2 resultswithin the time period is included. Anatomical Region Laterality Modality Body, Pelvis, Abdomen Computed T omography us Tessy Painting MD [facility] CT PROCEDURES Final Result * CBC auto differential [[id number]] (04/13/2025 11:55 AM EDT) Only the most recent of2 resultswithin the time period is included. White Blood Cell Count 10.1 3.4 - 10.8 x10E3/uL [facility] Red Blood Cell Count 5.25 4.14 - 5.80 x10E6/uL [facility] Hemoglobin 17.0 13.0 - 17.7 g/dL [facility] Hematocrit 50.0 37.5 - 51.0 % [facility] MCV 95 79 - 97 fL [facility] MCH 32.4 26.6 - 33.0 pg [facility] MCHC 34.0 31.5 - 35.7 g/dL [facility] RDW 13.8 11.6 - 15.4 % [facility] Platelet Count 388 150 - 450 x10E3/uL [facility] Neutrophils 64 Not Estab. % [facility] Lymphocytes 23 Not Estab. % [facility] Monocytes 8 Not Estab. % [facility] Eosinophils 4 Not Estab. % [facility] Basophils 1 Not Estab. % [facility] Absolute Neutrophils 6.6 1.4 - 7.0 x10E3/uL [facility] Absolute Lymphocytes 2.3 0.7 - 3.1 x10E3/uL [facility] Absolute Monocytes 0.8 0.1 - 0.9 x10E3/uL [facility] Absolute Eosinophils 0.4 0.0 - 0.4 x10E3/uL [facility] Absolute Basophils 0.1 0.0 - 0.2 x10E3/uL [facility] Immature Granulocytes 0 Not Estab. % [facility] Immature Grans (Abs) 0.0 0.0 - 0.1 x10E3/uL [facility] Blood Venous blood specimen / Unknown 04/13/2025 11:55 AM EDT 04/13/2025 Narrative Resulting Agency Comment Performed at: - [facility] [address] [place], [place] [id number] Senior Business Architect: Dilcia Cervantes MD, Phone: [phone] us Tessy Painting MD LAB BLOOD ORDERABLES Final Res ult [facility] [address] [place] [address] * Basic Metabolic Panel [id number] (04/13/2025 11:55 AM EDT) Glucose 80 70 - 99 mg/dL [facility] Urea Nitrogen (BUN) 8 6 - 24 mg/dL [facility] Creatinine, Serum 0.90 0.76 - 1.27 mg/dL [facility] eGFR 98 >59 mL/min/1.7 3 [facility] BUN/Creatinine Ratio 9 9 - 20 [facility] Sodium 140 134 - 144 mmol/L [facility] Potassium 4.3 3.5 - 5.2 mmol/L [facility] Chloride 102 96 - 106 mmol/L [facility] Carbon Dioxide 20 20 - 29 mmol/L [facility] Calcium 9.6 8.7 - 10.2 mg/dL [facility] Blood Venous blood specimen / Unknown 04/13/2025 11:55 AM EDT 04/13/2025 Narrative Resulting Agency Comment Performed at: 01 - [facility] [id number] Senior Business Architect: Dilcia Cervantes MD, Phone: [phone] Tessy Painting MD LAB BLOOD ORDERABLES Final Res ult [facility] 1 [facility] [address] [place] [address] * MRI CERVICAL SPINE WO CONTRAST (03/05/2025 9:40 AM EDT) Anatomical Region Laterality Modality Magnetic Resonan ce us Tessy Pianting MD IMG MRI PROCEDURES Final Resul t [...] ORDERABLES Final Result * Lipid Panel, Standard [id number] (07/21/2024 10:11 AM EST) Cholesterol, Total 151 [...] - 07/22/2024 6:05 AM EST Performed at: [facility] [address] [id number] Senior Business Architect: Dilcia Cervantes MD, Phone: [phone] Tessy Painting MD LAB BLOOD ORDERABLES Final [...] Most Recently Relevant to Health Maintenance Insurance [facility] MEDICA[facility] STAND ADULT DENTAL - HSN FULL (MEDICAID) Care Teams Patient Access Relationship Specialty Start Date End Date Tessy Painting [place] [address] PCP - General Family Medicine 06/08/24 Miryam Oconnell 04/04/25
--- OUTSIDE RECORDS SUMMARY | 2025-04-30 13:33 | XMS_ITS | Encounter Summary ---
Author Organization [employer] Address 75 [facility] 7t [place] [address] Care Team Providers Care Foundation Relations Manager Name Role Phone Corazon Shelton PA-C Primary Care Provider Tesys Dawson MD Primary Care Provider [phone] Miryam Oconnell Unavailable Raffi Crespo Unavailable Encounter Details Date Type Department Care Team (Late Contact Info) Description 06/03/2022 Orders Only [address] [address] Aliza Alvarez LPN Social History Tobacco Use [...] Description 05/01/2025 3:00 PM EST Office Visit [address] [address] Tessy Painting MD 70 [place] [address] 05/04/2025 12:00 PM EST Office [facility] D[facility]AL [address] [place] [address] Maria G Thapa documented as of this encounter Visit Diagnoses Not on filedocumented in this encounter Care Teams Foundation Relations Manager Relationship Specialty Start Date End Date Corazon Shelton PA-C PCP - General Family Medicine 05/02/22 06/07/24 Tessy Painting MD [address] [place] [address] PCP - General Family Medicine 06/08/24 Miryam Oconnell 04/04/25 Raffi Crespo 04/16/25 04/16/25 documented as of this encounter
--- OUTSIDE RECORDS SUMMARY | 2025-04-30 13:33 | XMS_ITS | Encounter Summary ---
Author Organization [employer] Address 75 [facility] 7t [place] [address] Care Team Providers Care Registrar Nurses' Registry Name Role Phone Corazon Shelton PA-C Primary Care Provider Tessy Dawson MD Primary Care Provider [phone] Miryam Oconnell Unavailable Raffi Crespo Unavailable Reason for Visit * Reason Onset Date Comments virtual delivery 04/06/2024 Encounter Details Date Type Department Care Team (Late st Contact Info) Description 04/06/2024 Telephone [facility] MEDICAL [address] [place] [address] Corazon Shelton PA-C virtual delivery Social History [...] - 04/06/2024 10:28 AM EDT Cici from [employer] to schedule a virtual delivery with nursing documented in this encounter Plan of Treatment Upcoming Encounters Date Type Department Care Team (Late st Contact Info) Description 05/01/2025 3:00 PM EST Office Visit [facility] MED[facility] 58 [place] [address] Tessy Painting MD 70 [place] [address] 05/04/2025 12:00 PM EST Office Visit [facility] DENTAL 58 [place] [address] Maria G Thapa documented as of this encounter Visit Diagnoses Not on filedocumented in this encounter Care Teams Registrar Nurses' Registry Relationship Specialty Start Date End Date Corazon Shelton PA-C PCP - General Family Medicine 05/02/22 06/07/24 Tessy Painting MD 58 [place] [address] PCP - General Family Medicine 06/08/24 Miryam Oconnell 04/04/25 Raffi Crespo 04/16/25 04/16/25 documented as of this encounter
--- OUTSIDE RECORDS SUMMARY | 2025-04-30 13:33 | XMS_ITS | Encounter Summary ---
Author Organization [employer] Address 75 [facility] 7t [place] [address] Care Team Providers Care Robotic Toy Inventor Name Role Phone Tessy Painting MD Primary Care Provider [phone] Miryam Oconnell Unavailable Raffi Crespo Unavailable Encounter Details Date Type Department Care Team (Late st Contact Info) Description 03/06/2025 Orders Only [facility] [address] [place], [place] [phone] Tessy Painting MD 70 [place] [address] Social History Tobacco Use Types Packs/Day Years [...] Description 05/01/2025 3:00 PM EST Office Visit [facility] MEDICAL [address] [place] [address] Tessy Painting MD 70 [place] [address] 05/04/2025 12:00 PM EST Office Visit [facility] DENTAL [address] [place] [address] Maria G Thapa documented as of this [...] on filedocumented in this encounter Care Teams Robotic Toy Inventor Relationship Specialty Start Date End Date Tessy Painting MD [address] [place] [address] PCP - General Family Medicine 06/08/24 Miryam Oconnell 04/04/25 Raffi Crespo 04/16/25 04/16/25 documented as of this encounter
--- OUTSIDE RECORDS SUMMARY | 2025-04-30 13:33 | XMS_ITS | Encounter Summary ---
Author Organization [employer] Address 75 [facility] 7t [place] [address] Care Team Providers Care Lockstitch Pocket Setter Name Role Phone Tessy Painting MD Primary Care Provider [phone] Miryam Oconnell Unavailable Reason for Visit * Reason Onset Date Comments Results 04/23/2025 Encounter Details Date Type Department Care Team ([facility] Contact Info) Description 04/23/2025 Telephone [facility] MEDICAL [address] [place] [address] Tessy Painting MD 70 [place] [address] Results Social History Tobacco Use Types Packs/Day Years [...] the past 12 months, has t he [employer], gas, oil or water company threatened to [...] Telephone Encounter - Aliza Alvarez LPN - 04/26/2025 3:59 PM EST Spoke with . Advised him of HIMANSHU's message. He sees his surgeon on the and Dr. Painting on [id number] so he can discuss everything with her then. He was satisfied with that. * Telephone Encounter - Aliza Alvarez LPN - 04/23/2025 4:[address] Painting to review CT and advise on 4 * Telephone Encounter - Brittney Yoan - 04/23/2025 3:50 PM EST Patient called Please call back to discuss the CT results documented in this encounter Plan of Treatment Upcoming Encounters Date Type Department Care Team (Late st Contact Info) Description 05/01/2025 3:00 PM EST Office Visit [facility] MEDICAL 58 [place] [address] Tessy Painting MD 70 [place] [address] 05/04/2025 12:00 PM EST Office Visit [facility] DENTAL 58 [place] [address] Maria G Thapa documented as of this encounter Visit Diagnoses Not on filedocumented in this encounter Care Teams Lockstitch Pocket Setter Relationship Specialty Start Date End Date Tessy Paintnig MD 58 [place] [address] PCP - General Family Medicine 06/08/24 Miryam Oconnell 04/04/25 documented as of this encounter
--- OUTSIDE RECORDS SUMMARY | 2025-04-30 13:33 | XMS_ITS | Encounter Summary ---
Author Organization [employer] Address 75 [facility] 7t [place] [address] Care Team Providers Care Decay Control Operator Name Role Phone Corazon Shelton PA-C Primary Care Provider Tessy Dawson MD Primary Care Provider [phone] Miryam Oconnell Unavailable Raffi Crespo Unavailable Encounter [...] Description 05/01/2025 3:00 PM EST Office Visit [facility] MEDICAL [address] [place] [address] Tessy Painting MD 70 [place] [address] 05/04/2025 12:00 PM EST Office Visit [facility] DENTAL [address] [place] [address] Maria G Thapa documented as of this encounter Visit Diagnoses Not on filedocumented in this encounter Care Teams Decay Control Operator Relationship Specialty Start Date End Date Corazon Shelton PA-C PCP - General Family Medicine 05/02/22 06/07/24 Tessy Painting MD [address] [place] [address] PCP - General Family Medicine 06/08/24 Miryam Oconnell 04/04/25 Raffi Crespo 04/16/25 04/16/25 documented as of this encounter
--- OUTSIDE RECORDS SUMMARY | 2025-04-30 13:33 | XMS_ITS | Encounter Summary ---
Author Organization [employer] Address 75 [facility] 7t [place] [address] Care Team Providers Care Fountain Waitress/Waiter Name Role Phone Tessy Painting MD Primary Care Provider [phone] Miryam Oconnell Unavailable Raffi Crespo Unavailable Encounter Details Date Type Department Care Team (Late st Contact Info) Description 04/16/2025 Results Follow-Up [facility] MEDICAL 70 [place] [address] Tessy Painting MD 70 [place] [address] CBC auto differential Social History Tobacco Use [...] 3:00 PM EST Office Visit [facility] MEDICAL [address] [place] [address] Tessy Painting MD 70 [place] [address] 05/04/2025 12:00 PM EST Office Visit [facility] DENTAL [address] [place] [address] Maria G Thapa documented as of this encounter Visit Diagnoses Not on filedocumented in this encounter Care Teams Fountain Waitress/Waiter Relationship Specialty Start Date End Date Tessy Painting MD [address] [place] [address] PCP - General Family Medicine 06/08/24 Miryam Oconnell 04/04/25 Raffi Crespo 04/16/25 04/16/25 documented as of this encounter
--- OUTSIDE RECORDS SUMMARY | 2025-04-30 13:33 | XMS_ITS ---
Author Organization [employer] Address 75 [facility] [address] [place] [address] Care Team Providers Care Due Diligence Coordinator Name Role Phone Tessy Painting MD Primary Care Provider [phone] Miryam Oconnell CM Complex Status:Outreach In Progress (Enrolling) Start date:04/04/2025 Enrollment reason:Risk Strat Case Team Name Relationship Phone Miryam Oconnell(Responsible Staff) Continued Care and Services Coordination
--- OUTSIDE RECORDS SUMMARY | 2025-04-30 13:33 | XMS_ITS | Encounter Summary ---
Author Organization [employer] Address [address] [facility] [address] [place] [address] Care Team Providers Care Assistant Farm Operations Manager Name Role Phone Tessy Painting MD Primary Care Provider [phone] Miryam Oconnell Unavailable Encounter Details Date Type Department Care Team (Late st Contact Info) Description 04/24/2025 Orders Only [facility] [address] [place] [address] Tessy Painting MD [address] [place] [address] Social History Tobacco Use Types Packs/Day Years [...] Description 05/01/2025 3:00 PM EST Office Visit [facility] MEDICAL [address] [place] [address] Tessy Painting MD [address] [place] [address] 05/04/2025 12:00 PM EST Office Visit [facility] DENTAL [address] [place] [address] Maria G Thapa documented as of this encounter Procedures Procedure Name Priority Date/Time Associated Diagnosis Comments CT ABDOMEN PELVIS W CONTRAST Routine 04/19/2025 10:47 AM EDT documented in this encounter Results * CT Abdomen Pelvis w/ Contrast (04/19/2025 10:47 AM EDT) Anatomical Region Laterality Modality Body, Pelvis, Abdomen Computed T omography Tessy Painting MD IMG CT PROCEDURES Final Result documented in this encounter Visit Diagnoses Not on filedocumented in this encounter Care Teams Assistant Farm Operations Manager Relationship Specialty Start Date End Date Tessy Painting MD [address] [place] [address] PCP - General Family Medicine 06/08/24 Miryam Oconnell 04/04/25 documented as of this encounter
--- OUTSIDE RECORDS SUMMARY | 2025-04-30 13:33 | XMS_ITS | Encounter Summary ---
Author Organization [employer] Address [address] [facility] [address] [place] [address] Care Team Providers Care Vp Revenue Cycle Name Role Phone Corazon Shelton PA-C Primary Care Provider Tessy Dawson MD Primary Care Provider [phone] Miryam Oconnell Unavailable Raffi Crespo Unavailable Encounter [...] 05/01/2025 3:00 PM EST Office Visit [facility] MEDICAL [address] [place] [address] Tessy Painting MD [address] [place] [address] 05/04/2025 12:00 PM EST Office Visit [facility] DENTAL [address] [place] [address] Maria G Thapa documented as of this encounter Visit Diagnoses Not on filedocumented in this encounter Care Teams Vp Revenue Cycle Relationship Specialty Start Date End Date Corazon Shelton PA-C PCP - General Family Medicine 05/02/22 06/07/24 Tessy Painting MD [address] [place] [address] PCP - General Family Medicine 06/08/24 Miryam Oconnell 04/04/25 Raffi Crespo 04/16/25 04/16/25 documented as of this encounter
== END 2025-04-30 12:11 | disposition home or self-care (01) ==
LOC: HO.HNS 11:15
PROVIDERS: PCP Family Medicine; Visit Provider Physician Assistant
DX: M54.9 Dorsalgia, unspecified (principal); G95.9 Disease of spinal cord, unspecified
CPT/HCPCS: 99213

== ENCOUNTER → 2025-04-30 11:15 | Outpatient (BNVA) | payer MEDICAID, SELFPAY | PROVIDERS: PCP Family Medicine; Visit Provider Physician Assistant | DX: G95.9 Disease of spinal cord, unspecified (principal); M54.9 Dorsalgia, unspecified | CPT/HCPCS: 99212 ==